=== PATIENT | male | born 1935 | race Caucasian/White ===

== ENCOUNTER 2017-04-01 01:53 | Emergency (ER) | payer MEDICARE ==
--- NOTE | 2017-04-01 02:20 | ED Physician Documentation ---
History of Present Illness - Stated complaint Stated Complaint: NECK PX - Chief complaint Chief Complaint: General - History obtained from History obtained from: Patient - History of Present Illness Timing: Enter time (15:00), Yesterday Pain level now: 5 Improved by: rest Worsened by: movement (turning head to right) - Additonal information Additional information: c/o atraumatic right-sided posterior neck pain since 3 PM (approximately 12 hours [employer] PROC[employer]). no h/o same. tylenol without relief. distinctly worse with rotation of head to right. difficulty sleeping or even lying down tonight due to the pain. Review of Systems Constitutional: denies: Fever Cardiac: reports: Reviewed and negative Respiratory: reports: Reviewed and negative GI: reports: Reviewed and negative Skin: denies: Rash Musculoskeletal: reports: Neck pain. denies: Back pain Neurologic: denies: Focal weakness, Numbness, Headache PD PAST MEDICAL HISTORY - Past Medical History Past Medical History: Yes GI: GERD - Past Surgical History Past Surgical History: Yes General: Hiatal hernia repair - Present Medications Home Medications: Ambulatory Orders Medication Instructions Recorded Confirmed Cyclobenzaprine [Flexeril] 10 mg PO TID PRN #20 tablet 04/01/17 Esomeprazole Magnesium [Nexium] 1 tab PO DAILY 04/01/17 04/01/17 HYDROcod/ACETAM 5/325 [[place] 5/325] 1 - 2 ea PO Q6H PRN #15 tablet 04/01/17 - Allergies Allergies/Adverse Reactions: Allergies Allergy/AdvReac Type Severity Reaction Status Date / Time No Known Drug Allergies Allergy Verified 04/01/17 02:01 - Social History Does the pt smoke?: No Smoking Status: Never smoker Does the pt drink ETOH?: No Does the pt have substance abuse?: No - Immunizations Immunizations are current?: Yes - POLST Patient has POLST: No PD ED PE NORMAL - Vitals Vital signs reviewed: Yes - General General: Alert and oriented X 3, No acute distress, Well developed/nourished - HEENT HEENT: Moist mucous membranes, Pharynx benign - Neck Neck: Supple, no meningeal sign, No bony TTP, No adenopathy, Thyroid normal - Cardiac Cardiac: RRR, No murmur, No rub - Respiratory Respiratory: No respiratory distress, Clear bilaterally - Back Back: No spinal TTP, Other (mild TTP right paracervical and along proximal trapezial ridge) - Derm Derm: Normal color, Warm and dry, No rash - Neuro Neuro: Alert and oriented X 3, back tender paper machine 2-12 intact, No motor deficit, No sensory deficit, Normal speech Results - Vitals Vitals: Vital Signs - 24 hr 04/01/17 04/01/17 04/01/17 01:55 02:45 03:00 Temperature 36.6 C Heart Rate 80 82 84 Respiratory 18 16 16 Rate Blood Pressure 207/97 H 173/111 H 182/93 H O2 Saturation 94 94 96 Oxygen O2 Source Room air PD MEDICAL DECISION MAKING - ED course Complexity details: considered differential, d/w patient Departure - Departure Disposition: 01 Home, Self Care Clinical Impression: Neck pain Condition: Good Instructions: ED Hypertension Poss, ED Neck Pain No Trauma Follow-Up: Celina Khan ARNP [Primary Care Provider] - Within 1 week Prescriptions: Cyclobenzaprine [Flexeril] 10 mg PO TID PRN #20 tablet PRN Reason: Spasms HYDROcod/ACETAM 5/325 [[place] 5/325] 1 - 2 ea PO Q6H PRN #15 tablet PRN Reason: Pain Discharge Date/Time: 04/01/17 03:07
[2017-04-01] MEDS ORDERED: HYDROcod/ACETAM 5/325 MG TABLET PO STA (02:56)
[2017-04-01] MEDS ORDERED: CYCLOBENZAPRINE 10 MG TABLET PO STA (02:56)
[2017-04-01 03:02] VITALS: BP 182/93
== END 2017-04-01 03:07 | disposition home or self-care (01) ==
LOC: ED 01:53
DX: M54.2 Cervicalgia (principal); K21.9 Gastro-esophageal reflux disease without esophagitis; M50.30 Other cervical disc degeneration, unspecified cervical region
CPT/HCPCS: 72050; 99283; A9270

== ENCOUNTER 2017-04-01 13:43 | Outpatient (CLI) | payer MEDICARE, OTHER ==
--- NOTE | 2017-04-02 13:16 | XRAY Report ---
DATE OF SERVICE: 04/01/2017 EXAM: COMPLETE CERVICAL SPINE: 04/01/2017 CLINICAL INDICATION: Muscle spasm. FINDINGS: AP, lateral, oblique, odontoid views of the cervical spine demonstrate moderate to severe degenerative disk and facet disease. There is bilateral osseous neural foraminal narrowing, worst on the left at C4-C5 and on the right at C3-C4. There is no evidence of acute fracture. No prevertebral soft tissue swelling is seen. IMPRESSION: MODERATE TO SEVERE DEGENERATIVE DISK AND FACET DISEASE, WITH BILATERAL OSSEOUS NEURAL FORAMINAL NARROWING. TD: 04/02/2017 10:41 BYRON
== END 2017-04-01 13:44 | disposition home or self-care (01) ==
LOC: DI 13:43
PROVIDERS: ATTEND Internal Medicine
DX: M54.2 Cervicalgia (principal); M50.30 Other cervical disc degeneration, unspecified cervical region
CPT/HCPCS: 72050

== ENCOUNTER 2017-11-09 14:52 | Outpatient (CLI) | payer MEDICARE, OTHER | END 2017-11-09 14:53 | disposition home or self-care (01) | LOC: LAB 14:52 | PROVIDERS: ATTEND Internal Medicine Gastroenterology | DX: R13.14 Dysphagia, pharyngoesophageal phase (principal) | CPT/HCPCS: 36415; 82565 ==

== ENCOUNTER 2017-12-01 12:28 | Outpatient (CLI) | payer MEDICARE, OTHER ==
[2017-12-01 12:46] LABS: BASOPHILS # (AUTO) 0.1 10^3/uL (0.0-0.1); BASOPHILS % (AUTO) 1.1 %; EOSINOPHILS # (AUTO) 0.2 10^3/uL (0.0-0.7); EOSINOPHILS % (AUTO) 3.9 %; HGB - HEMOGLOBIN 15.2 g/dL (14.0-18.0); LYMPHOCYTES % (AUTO) 15.9 %; MEAN CORPUSCULAR HGB CONC 35.4 g/dL (32.0-36.0); MEAN CORPUSCULAR VOLUME 84.9 fL (80.0-94.0); MONOCYTES # (AUTO) 0.5 10^3/uL (0.0-1.0); MONOCYTES % (AUTO) 8.5 %; NEUTROPHILS # (AUTO) 4.4 10^3/uL (1.5-6.6); NEUTROPHILS % (AUTO) 70.6 %; PLT - PLATELET COUNT 239 10^3/uL (130-450); RED BLOOD COUNT 5.07 10^6/uL (4.70-6.10); RED CELL DISTRIBUTION WIDTH 14.3 % (12.0-15.0); WHITE BLOOD COUNT 6.2 x10^3/uL (4.8-10.8)
[2017-12-01 12:57] LABS: INR 1.2 (0.8-1.2); PT - PROTHROMBIN TIME 13.6 secs (9.9-12.6)
[2017-12-01 12:58] LABS: ALBUMIN/GLOBULIN RATIO 1.3 (1.0-2.2); BILIRUBIN,TOTAL 1.4 mg/dL (0.2-1.0); TOTAL PROTEIN 7.2 g/dL (6.7-8.2)
== END 2017-12-01 12:29 | disposition home or self-care (01) ==
LOC: LAB 12:28
PROVIDERS: ATTEND Internal Medicine
DX: C15.9 Malignant neoplasm of esophagus, unspecified (principal)
CPT/HCPCS: 36415; 80053; 85025; 85610

== ENCOUNTER 2018-06-14 14:11 | Emergency (ER) | payer MEDICARE, OTHER ==
[2018-06-14] MEDS ORDERED: SODIUM CHLORIDE 0.9% 1,000 ML IV ONE ×2 (14:48→16:56)
[2018-06-14] MEDS ORDERED: HYDROmorphone 1 MG/ML CARPUJECT IVP STA (14:48)
[2018-06-14 14:50] LABS: BILIRUBIN,URINE NEGATIVE (NEGATIVE); GLUCOSE, URINE (UA) NEGATIVE (NEGATIVE); KETONES,URINE (UA) NEGATIVE (NEGATIVE); LEUKOCYTE ESTERASE, URINE NEGATIVE (NEGATIVE); NITRITE,URINE NEGATIVE (NEGATIVE); OCCULT BLOOD,URINE LARGE (NEGATIVE); PROTEIN,URINE TRACE mg/dL (NEGATIVE); UROBILINOGEN,URINE 1 (NORMAL) E.U./dL (NORMAL)
--- NOTE | 2018-06-14 14:51 | ED Physician Documentation ---
History of Present Illness - Stated complaint Stated Complaint: PAIN ALL OVER - Chief complaint Chief Complaint: Back Pain - History obtained from History obtained from: Patient, Family (daughter) - History of Present Illness Timing: Other (This is an 82-year-old gentleman who was diagnosed with esophageal cancer last year. It sounds like it was metastatic at diagnosis. He received chemotherapy and more recently Keytruda, last infusion about 2 weeks ago. About 10 days ago he developed body wide pain. Especially in the neck back shoulders and legs and really only bad if he moves. He also notes shortness of breath with mild increase in chronic cough over that timeframe without pedal edema or calf pain per se.) Review of Systems Ten Systems: 10 systems reviewed and negative Constitutional: reports: Fatigue. denies: Fever, Chills Nose: denies: Rhinorrhea / runny nose, Congestion Cardiac: denies: Chest pain / pressure, Palpitations, Pedal edema, Calf pain Respiratory: reports: Dyspnea, Cough. denies: Hemoptysis, Wheezing GI: denies: Abdominal Pain PD PAST MEDICAL HISTORY - Past Medical History Respiratory: COPD GI: GERD Other Past Medical History: esophageal cancer - Past Surgical History Past Surgical History: Yes General: Hiatal hernia repair - Present Medications Home Medications: Ambulatory Orders Medication Instructions Recorded Confirmed Cyclobenzaprine [Flexeril] 10 mg PO TID PRN #20 tablet 04/01/17 Esomeprazole Magnesium [Nexium] 1 tab PO DAILY 04/01/17 04/01/17 RX: HYDROcod/ACETAM 5/325 [[place] 1 - 2 ea PO Q6H PRN #15 tablet 04/01/17 5/325] - Allergies Allergies/Adverse Reactions: Allergies Allergy/AdvReac Type Severity Reaction Status Date / Time No Known Drug Allergies Allergy Verified 06/14/18 14:39 - Social History Does the pt smoke?: No Smoking Status: Never smoker Does the pt drink ETOH?: No Does the pt have substance abuse?: No - Family History Family history: reports: Non contributory - Immunizations Immunizations are current?: Yes - POLST Patient has POLST: No PD ED PE NORMAL - Vitals Vital signs reviewed: Yes (Hypoxemic) - General General: Alert and oriented X 3, No acute distress - HEENT HEENT: PERRL, EOMI - Neck Neck: Supple, no meningeal sign, No bony TTP - Cardiac Cardiac: RRR, No murmur - Respiratory Respiratory: Other (He is a little labored with exertion, comfortable at rest. Lung sounds are diminished on the left.) - Abdomen Abdomen: Soft, Non tender - Back Back: No CVA TTP, No spinal TTP - Derm Derm: Normal color, Warm and dry - Extremities Extremities: No deformity, No tenderness to palpate (Palpated all of his major joints and ranged his hips and knees and find no specific place that hurts him.), No edema, No calf tenderness / cord - Neuro Neuro: Alert and oriented X 3, nib inspector 2-12 intact, Normal speech Eye Opening: Spontaneous Motor: Obeys Commands Verbal: Oriented GCS Score: 15 Results - Vitals Vitals: Vital Signs - 24 hr 06/14/18 06/14/18 06/14/18 14:18 14:35 14:36 Temperature 36.5 C Heart Rate 69 78 73 Respiratory 18 Rate Blood Pressure 169/79 H O2 Saturation 89 L 85 L 95 06/14/18 06/14/18 06/14/18 15:23 17:08 17:23 Temperature Heart Rate 66 72 79 Respiratory 16 20 23 Rate Blood Pressure 135/87 H 166/66 H O2 Saturation 95 96 06/14/18 19:03 Temperature 36.6 C Heart Rate 76 Respiratory 20 Rate Blood Pressure 168/83 H O2 Saturation 95 Oxygen O2 Source Nasal cannula Oxygen Flow Rate 2 - EKG (time done) 1501 Rate: Rate (enter#) (67) Rhythm: NSR [place]: Normal Intervals: Normal [place] QRS: Normal Ischemia: Q waves (inferior) Computer interpretation: Agree with computer - Labs Labs: Laboratory Tests 06/14/18 06/14/18 06/14/18 14:30 14:55 14:55 WBC 4.7 L RBC 4.33 L Hgb 13.9 L Hct 38.8 L MCV 89.7 MCH 32.1 H MCHC 35.8 RDW 14.7 Plt Count 159 MPV 6.3 L Neut # (Auto) 3.9 Lymph # (Auto) 0.2 L [place] # (Auto) 0.4 Eos # (Auto) 0.1 Baso # (Auto) 0.0 Absolute Nucleated RBC 0.00 Nucleated RBC % 0.1 PT 14.5 H INR 1.3 H Sodium Potassium Chloride Carbon Dioxide Anion Gap BUN Creatinine Estimated GFR (MDRD) Glucose Lactic Acid Calcium Total Bilirubin AST ALT Alkaline Phosphatase Total Creatine Kinase CK-MB (CK-2) Troponin I Total Protein Albumin Globulin Albumin/Globulin Ratio Lipase Urine Color DARK YELLOW Urine Clarity CLEAR Urine pH 6.0 Ur Specific [place] <=1.005 Urine Protein TRACE Urine Glucose (UA) NEGATIVE Urine Ketones NEGATIVE Urine Occult Blood LARGE H Urine Nitrite NEGATIVE Urine Bilirubin NEGATIVE Urine Urobilinogen 1 (NORMAL) Ur Leukocyte Esterase NEGATIVE Urine RBC None Seen Urine WBC 0-3 Ur Squamous Epith Cells RARE Squamous Urine Bacteria None Seen Ur Microscopic Review INDICATED Urine Culture Comments NOT INDICATED 06/14/18 06/14/18 06/14/18 14:55 14:55 14:55 WBC RBC Hgb Hct MCV MCH MCHC RDW Plt Count MPV Neut # (Auto) Lymph # (Auto) [place] # (Auto) Eos # (Auto) Baso # (Auto) Absolute Nucleated RBC Nucleated RBC % PT INR Sodium 133 L Potassium 4.3 Chloride 96 L Carbon Dioxide 26 Anion Gap 11.0 BUN 14 Creatinine 0.8 Estimated GFR (MDRD) 93 Glucose 96 Lactic Acid 1.4 Calcium 8.5 Total Bilirubin 1.3 H AST 524 H ALT 314 H Alkaline Phosphatase 154 H Total Creatine Kinase 8597 H* CK-MB (CK-2) 164.7 H Troponin I 1.22 H* Total Protein 6.7 Albumin 3.6 Globulin 3.1 Albumin/Globulin Ratio 1.2 Lipase 28 Urine Color Urine Clarity Urine pH Ur Specific [place] Urine Protein Urine Glucose (UA) Urine Ketones Urine Occult Blood Urine Nitrite Urine Bilirubin Urine Urobilinogen Ur Leukocyte Esterase Urine RBC Urine WBC Ur Squamous Epith Cells Urine Bacteria Ur Microscopic Review Urine Culture Comments - Rads (name of study) CT Chest Angio Radiology: EMP read contemporaneously (No PE but he has severe underlying emphysema with pulmonary hypertension.) PD MEDICAL DECISION MAKING - ED course ED course: This is an 82-year-old gentleman with esophageal cancer undergoing treatment who presents with diffuse body pain that seems musculoskeletal and hypoxemia. His EKG is without significant ST changes. He is found to have evidence of rhabdomyolysis, non-STEMI, and severe COPD. I suspect the non-STEMI is a type II process from underlying COPD. He will need to be transferred for further evaluation and treatment and consultations with oncology and cardiology. He was administered aspirin, heparin, DuoNeb, Solu-Medrol, Rocephin and Zithromax after blood cultures. He was accepted by Dr Melgoza at [facility], but she requested that we try to admit here as she felt it would all be medical management. I spoke with Dr Finch here who felt he was not approproate for admit here without cardiuology c/s. - Critical Care Time(min): 40 Time Includes: Direct patient care, Review records, Reassess patient, Document care, Coordinate care, Medical consult, Family consult for tx dec Data interpretation: Labs, Pulse ox Procedures included in critical care time: Peripheral IV Procedures excluded from critical care time: EKG Departure - Departure Disposition: 02 Transfer Acute Care Hosp Clinical Impression: NSTEMI (non-ST elevated myocardial infarction), Hypoxemia COPD (chronic obstructive pulmonary disease) Qualifiers: COPD type: emphysema Emphysema type: panlobular Qualified Code(s): J43.1 - Panlobular emphysema Esophageal cancer Qualifiers: Malignant neoplasm of esophagus location: unspecified location Qualified Code(s): C15.9 - Malignant neoplasm of esophagus, unspecified Rhabdomyolysis Qualifiers: Rhabdomyolysis type: non-traumatic Qualified Code(s): M62.82 - Rhabdomyolysis Condition: Critical Discharge Date/Time: 06/14/18 19:17
[2018-06-14 14:54] LABS: CLARITY,URINE CLEAR (CLEAR)
[2018-06-14] MEDS ORDERED: IOVERSOL 320 100 ML VIAL IVP ONE ×2 (15:04→18:55)
[2018-06-14 15:11] LABS: BASOPHILS % (AUTO) 0.8 %; EOSINOPHILS # (AUTO) 0.1 10^3/uL (0.0-0.7); EOSINOPHILS % (AUTO) 1.8 %; HGB - HEMOGLOBIN 13.9 g/dL (14.0-18.0); LYMPHOCYTES # (AUTO) 0.2 10^3/uL (1.5-3.5); LYMPHOCYTES % (AUTO) 5.1 %; MEAN CORPUSCULAR HEMOGLOBIN 32.1 pg (27.0-31.0); MEAN CORPUSCULAR HGB CONC 35.8 g/dL (32.0-36.0); MEAN CORPUSCULAR VOLUME 89.7 fL (80.0-94.0); MEAN PLATELET VOLUME 6.3 fL (7.4-11.4); MONOCYTES # (AUTO) 0.4 10^3/uL (0.0-1.0); MONOCYTES % (AUTO) 8.5 %; NEUTROPHILS # (AUTO) 3.9 10^3/uL (1.5-6.6); NEUTROPHILS % (AUTO) 83.8 %; PLT - PLATELET COUNT 159 10^3/uL (130-450); RED BLOOD COUNT 4.33 10^6/uL (4.70-6.10); RED CELL DISTRIBUTION WIDTH 14.7 % (12.0-15.0); WHITE BLOOD COUNT 4.7 x10^3/uL (4.8-10.8)
[2018-06-14 15:11] LABS: BACTERIA,URINE None Seen /HPF (None Seen); RBC,URINE None Seen /HPF (0-5); SQUAMOUS EPITHELIAL CELL,UR RARE Squamous (<= Few)
[2018-06-14 15:21] LABS: INR 1.3 (0.8-1.2); PT - PROTHROMBIN TIME 14.5 secs (9.9-12.6)
[2018-06-14 15:25] LABS: CREATINE KINASE MB 164.7 ng/mL (0.6-6.3)
[2018-06-14 15:40] LABS: ALBUMIN 3.6 g/dL (3.2-5.5); ALBUMIN/GLOBULIN RATIO 1.2 (1.0-2.2); BILIRUBIN,TOTAL 1.3 mg/dL (0.2-1.0); CALCIUM 8.5 mg/dL (8.5-10.3); CREATININE 0.8 mg/dL (0.6-1.2); TOTAL PROTEIN 6.7 g/dL (6.7-8.2)
[2018-06-14 16:05] LABS: TROPONIN I 1.22 ng/mL (<0.49)
--- NOTE | 2018-06-14 16:25 | CT Report ---
Reason: PE protocol, pain and hypoxemia Procedure Date: 06/14/2018 Accession Number: [id number] / [id number] Procedure: CT - ANGIO CHEST W/WO CPT Code: FULL RESULT: EXAM: CT ANGIOGRAM CHEST WITH AND WITHOUT. EXAM DATE: 06/14/2018 04:10 PM. CLINICAL HISTORY: Pulmonary embolism protocol, pain and hypoxemia. COMPARISON: None. TECHNIQUE: Routine helical imaging was performed through the chest in the pulmonary arterial phase. IV Contrast: OPTI-320 80 mL. Reconstructions: Coronal 3-D MIP reconstructions.Sagittal and coronal. In accordance with CT protocol optimization, one or more of the following dose reduction techniques were utilized for this exam: automated exposure control, adjustment of mA and/or KV based on patient size, or use of iterative reconstructive technique. FINDINGS: Pulmonary Arteries: Diagnostic quality: Adequate through the segmental arteries. No evidence for acute or chronic pulmonary emboli. RV/LV is within normal limits. There is no interventricular septal bowing. There is no reflux of contrast material in the IVC. Lungs/Pleura: Severe underlying emphysematous changes. Additionally, in both lung bases there is scarring and interstitial thickening. Mediastinum: There is enlargement of the left and right pulmonary arteries, suggestive of pulmonary hypertension. No mediastinal or hilar lymphadenopathy. Atherosclerotic coronary arteries. Thoracic Aorta: Atherosclerotic. Upper Abdomen: Right renal cyst. Other: None. IMPRESSION: Severe underlying emphysema with pulmonary arteries suggestive of pulmonary hypertension. No pulmonary embolism. CRITICAL RESULT: The findings were discussed with Dr. Ni on 06/14/2018 at 4:20 PM. RADIA
[2018-06-14] MEDS ORDERED: IPRATROPIUM/ALBUTEROL 3 ML NEB INH STA (16:47)
[2018-06-14] MEDS ORDERED: AZITHROMYCIN INJ 500 MG in SODIUM CHLORIDE 0.9% 250 ML IV STA (16:47)
[2018-06-14] MEDS ORDERED: cefTRIAXone 1 GM in SODIUM CHLORIDE 0.9% MINIBAG 100 ML IV STA (16:47)
[2018-06-14] MEDS ORDERED: ASPIRIN CHEW 81 MG TABLET PO STA (16:47)
[2018-06-14] MEDS ORDERED: methylPREDNISolone SUCCINATE 125 MG/2 ML VIAL IVP STA (16:47)
[2018-06-14] MEDS ORDERED: HEPARIN 25000UNITS/500ML (D5W) 25,000 UNIT/500 ML BAG IV STA (16:47)
[2018-06-14 19:06] VITALS: BP 168/83
== END 2018-06-14 19:17 | disposition short-term general hospital (02) ==
LOC: ED 14:11
DX: I21.4 Non-ST elevation (NSTEMI) myocardial infarction (principal); J43.1 Panlobular emphysema; M62.82 Rhabdomyolysis; R94.31 Abnormal electrocardiogram [ECG] [EKG]; C15.9 Malignant neoplasm of esophagus, unspecified; Z92.21 Personal history of antineoplastic chemotherapy
CPT/HCPCS: 36415; 36556; 71275; 80053; 81001; 82550; 82553; 83605; 83690; 84484; 85025; 85610; 87040; 93005; 94640; 96361; 96365; 96375; 96376; 99285; 99291; A9270; J1170; Q9967; 81003; 87086

== ENCOUNTER 2018-06-14 19:15 | Outpatient (CLI) | payer MEDICARE, OTHER | END 2018-06-14 19:16 | disposition short-term general hospital (02) | LOC: EMS 19:15 | PROVIDERS: ATTEND Surgery | DX: I21.4 Non-ST elevation (NSTEMI) myocardial infarction (principal); M62.82 Rhabdomyolysis | CPT/HCPCS: A0425; A0426 ==

== ENCOUNTER 2018-08-03 19:36 | Inpatient (IN) | payer MEDICARE, OTHER ==
[2018-08-03 20:10] LABS: BASOPHILS % (AUTO) 0.7 %; EOSINOPHILS % (AUTO) 0.2 %; HGB - HEMOGLOBIN 12.2 g/dL (14.0-18.0); LYMPHOCYTES # (AUTO) 0.2 10^3/uL (1.5-3.5); LYMPHOCYTES % (AUTO) 2.4 %; MEAN CORPUSCULAR HEMOGLOBIN 31.3 pg (27.0-31.0); MEAN CORPUSCULAR HGB CONC 35.1 g/dL (32.0-36.0); MEAN CORPUSCULAR VOLUME 89.4 fL (80.0-94.0); MEAN PLATELET VOLUME 5.9 fL (7.4-11.4); MONOCYTES # (AUTO) 0.5 10^3/uL (0.0-1.0); MONOCYTES % (AUTO) 8.2 %; NEUTROPHILS # (AUTO) 5.7 10^3/uL (1.5-6.6); NEUTROPHILS % (AUTO) 88.5 %; PLT - PLATELET COUNT 165 10^3/uL (130-450); RED BLOOD COUNT 3.89 10^6/uL (4.70-6.10); RED CELL DISTRIBUTION WIDTH 16.6 % (12.0-15.0); WHITE BLOOD COUNT 6.4 x10^3/uL (4.8-10.8)
[2018-08-03 20:22] LABS: ALBUMIN 3.5 g/dL (3.2-5.5); ALBUMIN/GLOBULIN RATIO 1.1 (1.0-2.2); BILIRUBIN,TOTAL 2.6 mg/dL (0.2-1.0); CALCIUM 8.4 mg/dL (8.5-10.3); CREATININE 0.7 mg/dL (0.6-1.2); TOTAL PROTEIN 6.6 g/dL (6.7-8.2)
--- NOTE | 2018-08-03 20:27 | ED Physician Documentation ---
PD HPI ALTERED MENTAL STATUS - Stated complaint Stated Complaint: CONFUSION/CHILLS - Chief complaint Chief Complaint: Resp - History obtained from History obtained from: Patient, Family - History of Present Illness Timing - onset: Yesterday Timing - details: Gradual onset Quality / character: Confused, Disoriented Associated symptoms: Dyspnea, Cough. No: Fever Contributing factors: Cancer Basline status: Alert and oriented X 3, Ambulatory Recently seen: Other (evaluated outpatient at [facility] by radiologist for planning for radiation tx) - Additional information Additional information: patient c/o chest and back pain x few days. However, family (in ED at bedside) say this is subacute (few weeks) and is not why he is here: they report patient has been confused, "disoriented" since yesterday, worse today. They have also observed episodic shaking chills during the day today and this evening, as well as increasing cough and shortness of breath x few days. He was started on 2 liters [place] oxygen at home approximately 1 month ago but he has recently been increasing this to 4 and 5 liters oxygen due to increasing dyspnea. He recently completed a PO steroid taper Review of Systems Constitutional: reports: Chills. denies: Fever, Sweats Throat: reports: Reviewed and negative Cardiac: reports: Reviewed and negative Respiratory: reports: Dyspnea, Cough GI: reports: Reviewed and negative : denies: Dysuria, Frequency Skin: reports: Reviewed and negative Musculoskeletal: reports: Back pain (chronic) Neurologic: reports: Confused, Altered mental status. denies: Focal weakness, Numbness, Headache PD PAST MEDICAL HISTORY - Past Medical History Past Medical History: Yes Respiratory: COPD GI: GERD Other Past Medical History: esophogeal cancer - Past Surgical History Past Surgical History: Yes General: Hiatal hernia repair - Present Medications Home Medications: Ambulatory Orders Medication Instructions Recorded Confirmed Aspirin 81 mg PO DAILY 08/03/18 08/03/18 Esomeprazole Magnesium 40 mg PO DAILY 08/03/18 08/03/18 Ibuprofen 600 mg PO Q6H 08/03/18 08/03/18 Metoprolol Succinate 25 mg PO DAILY 08/03/18 08/03/18 Morphine Ir [Ms Ir] 7.5 mg PO Q6H 08/03/18 08/03/18 Prochlorperazine Maleate 10 mg PO Q6H PRN 08/03/18 08/03/18 [Compazine] Tiotropium [place] [Spiriva] 18 mcg IH DAILY 08/03/18 amLODIPine [Norvasc] 5 mg PO DAILY 08/03/18 08/03/18 - Allergies Allergies/Adverse Reactions: Allergies Allergy/AdvReac Type Severity Reaction Status Date / Time pembrolizumab [From Keytruda] Allergy Anaphylaxis Verified 08/03/18 19:46 - Social History Does the pt smoke?: No Smoking Status: Former smoker Does the pt drink ETOH?: No Does the pt have substance abuse?: No - Immunizations Immunizations are current?: Yes - POLST Patient has POLST: No PD ED PE NORMAL - Vitals Vital signs reviewed: Yes - General General: Alert and oriented X 3, No acute distress, Well developed/nourished - HEENT HEENT: PERRL, EOMI, Moist mucous membranes - Neck Neck: Supple, no meningeal sign - Cardiac Cardiac: RRR, No murmur, Other (occasional extra beats) - Respiratory Respiratory: No respiratory distress, Clear bilaterally - Abdomen Abdomen: Soft, Non tender - Derm Derm: Normal color, Warm and dry - Extremities Extremities: No edema - Neuro Neuro: Alert and oriented X 3, vice president of finance 2-12 intact, No motor deficit, No sensory deficit, Normal speech Eye Opening: Spontaneous Motor: Obeys Commands Verbal: Oriented GCS Score: 15 Results - Vitals Vitals: Vital Signs - 24 hr 08/03/18 08/03/18 08/03/18 19:36 20:03 20:35 Temperature 36.7 C Heart Rate 92 90 Respiratory 24 22 25 H Rate Blood Pressure 171/81 H O2 Saturation 88 L 91 L 92 08/03/18 08/03/18 08/03/18 21:02 21:30 21:59 Temperature Heart Rate 88 84 Respiratory 16 16 Rate Blood Pressure 171/88 H 160/77 H O2 Saturation 91 L 93 88 L 08/03/18 22:16 Temperature Heart Rate Respiratory Rate Blood Pressure O2 Saturation 92 Oxygen O2 Source Nasal cannula Oxygen Flow Rate 4 - EKG (time done) No standard instances Rate: Wilfred (93) Rhythm: NSR [place]: Normal Intervals: Normal [place] QRS: Normal Ischemia: Non specific changes (V2-V5) Compare to prior EKG: Other (similar ST findings (V leads) on previous 06/14/18) - Labs Labs: Laboratory Tests 08/03/18 08/03/18 08/03/18 20:03 20:03 20:03 WBC 6.4 RBC 3.89 L Hgb 12.2 L Hct 34.8 L MCV 89.4 MCH 31.3 H MCHC 35.1 RDW 16.6 H Plt Count 165 MPV 5.9 L Neut # (Auto) 5.7 Lymph # (Auto) 0.2 L [place] # (Auto) 0.5 Eos # (Auto) 0.0 Baso # (Auto) 0.0 Absolute Nucleated RBC 0.01 Nucleated RBC % 0.2 Sodium 132 L Potassium 3.2 L Chloride 97 L Carbon Dioxide 25 Anion Gap 10.0 BUN 16 Creatinine 0.7 Estimated GFR (MDRD) 108 Glucose 117 H Lactic Acid Calcium 8.4 L Total Bilirubin 2.6 H AST 27 ALT 32 Alkaline Phosphatase 158 H Troponin I < 0.04 B-Natriuretic Peptide Total Protein 6.6 L Albumin 3.5 Globulin 3.1 Albumin/Globulin Ratio 1.1 Lipase 21 L Urine Color Urine Clarity Urine pH Ur Specific [place] Urine Protein Urine Glucose (UA) Urine Ketones Urine Occult Blood Urine Nitrite Urine Bilirubin Urine Urobilinogen Ur Leukocyte Esterase Ur Microscopic Review Urine Culture Comments 08/03/18 08/03/18 08/03/18 20:03 20:03 21:44 WBC RBC Hgb Hct MCV MCH MCHC RDW Plt Count MPV Neut # (Auto) Lymph # (Auto) [place] # (Auto) Eos # (Auto) Baso # (Auto) Absolute Nucleated RBC Nucleated RBC % Sodium Potassium Chloride Carbon Dioxide Anion Gap BUN Creatinine Estimated GFR (MDRD) Glucose Lactic Acid 1.4 Calcium Total Bilirubin AST ALT Alkaline Phosphatase Troponin I B-Natriuretic Peptide 147 H Total Protein Albumin Globulin Albumin/Globulin Ratio Lipase Urine Color YELLOW Urine Clarity CLEAR Urine pH 6.0 Ur Specific [place] 1.010 Urine Protein TRACE Urine Glucose (UA) NEGATIVE Urine Ketones >=80 H Urine Occult Blood TRACE-INTA Urine Nitrite NEGATIVE Urine Bilirubin NEGATIVE Urine Urobilinogen 4 H Ur Leukocyte Esterase NEGATIVE Ur Microscopic Review NOT INDICATED Urine Culture Comments NOT INDICATED - Rads (name of study) chest xray Radiology: Prelim report reviewed, See rad report CT head Radiology: Prelim report reviewed, See rad report PD MEDICAL DECISION MAKING - ED course Complexity details: reviewed results, re-evaluated patient, considered differential, d/w patient, d/w family Departure - Departure Disposition: 66 [facility] DC/Xfer Clinical Impression: Hypoxemia, COPD (chronic obstructive pulmonary disease) Condition: Stable Discharge Date/Time: 08/03/18 23:39
--- NOTE | 2018-08-03 20:48 | XRAY Report ---
Reason: hypoxic chills Procedure Date: 08/03/2018 Accession Number: [id number] / [id number] Procedure: XR - Chest 1 View X-Ray CPT Code: 16521 FULL RESULT: EXAM: CHEST RADIOGRAPHY EXAM DATE: 08/03/2018 08:36 PM. CLINICAL HISTORY: Hypoxic chills. COMPARISON: CHEST 2 VIEW PA/LAT 02/15/2017 2:46 PM. TECHNIQUE: 1 view. FINDINGS: Lungs/Pleura: There are increased ill-defined airspace opacities in the right mid lung and left lung base. There is vague increased density in the left upper lobe. Lung volumes are symmetric. There is no pneumothorax. Mediastinum: There is a right-sided Port-A-Cath with tip at the cavoatrial junction. The heart size is normal. There is mild atherosclerotic aortic calcification. Other: None. IMPRESSION: 1. New bilateral airspace disease suspicious for bilateral bronchopneumonia or less likely pulmonary edema. RADIA
--- NOTE | 2018-08-03 20:54 | CT Report ---
Reason: altered mental status Procedure Date: 08/03/2018 Accession Number: [id number] / [id number] Procedure: CT - HEAD WO CPT Code: FULL RESULT: EXAM: CT HEAD EXAM DATE: 08/03/2018 08:44 PM. CLINICAL HISTORY: Altered mental status. COMPARISON: None. TECHNIQUE: Multiaxial CT images were obtained from the foramen magnum to the vertex. Reformats: Sagittal and coronal. IV contrast: None. In accordance with CT protocol optimization, one or more of the following dose reduction techniques were utilized for this exam: automated exposure control, adjustment of mA and/or KV based on patient size, or use of iterative reconstructive technique. FINDINGS: Parenchyma: No intraparenchymal hemorrhage. No evidence of mass, midline shift, or CT findings of acute infarction. Wheeler-white differentiation is distinct. Diffuse chronic microangiopathic white matter changes. Extraaxial Spaces: Normal for age. No subdural or epidural collections. Ventricles: The ventricles and cortical sulci are enlarged, consistent with age-related tissue loss. Sinuses and orbits: Imaged paranasal sinuses, orbits, and mastoids show no significant abnormality. Bones: Unremarkable. Other: None. IMPRESSION: Generalized age-related cortical atrophic changes without evidence of acute intracranial abnormality. RADIA
[2018-08-03] MEDS ORDERED: MORPHINE 2 MG/ML SYRINGE IVP STA ×2 (21:47→22:49)
[2018-08-03 21:53] LABS: GLUCOSE, URINE (UA) NEGATIVE (NEGATIVE); KETONES,URINE (UA) >=80 mg/dL (NEGATIVE); LEUKOCYTE ESTERASE, URINE NEGATIVE (NEGATIVE); NITRITE,URINE NEGATIVE (NEGATIVE); OCCULT BLOOD,URINE TRACE-INTA (NEGATIVE); PROTEIN,URINE TRACE mg/dL (NEGATIVE); UROBILINOGEN,URINE 4 E.U./dL (NORMAL)
[2018-08-03 21:58] LABS: BILIRUBIN,URINE NEGATIVE (NEGATIVE); CLARITY,URINE CLEAR (CLEAR); ICTOTEST,URINE NEGATIVE
[2018-08-03] MEDS ORDERED: DEXAMETHASONE 10 MG/ML VIAL IVP STA (22:19)
[2018-08-03] MEDS ORDERED: cefTRIAXone 1 GM in SODIUM CHLORIDE 0.9% MINIBAG 100 ML IV STA (22:19)
[2018-08-03] MEDS ORDERED: AZITHROMYCIN INJ 500 MG in SODIUM CHLORIDE 0.9% 250 ML IV STA (22:20)
[2018-08-03] MEDS ORDERED: ACETAMINOPHEN 325 MG TABLET PO PRN (22:21)
--- NOTE | 2018-08-03 23:53 | HISTORY & PHYSICAL EXAMINATION ---
Chief Complaint - Chief Complaint Chief Complaint: confusion, dyspnea, chills History of Present Illness - Admitted From Admitted From:: [facility] ED - History Obtained From Records Reviewed: yes History obtained from: patient's daughter Exam Limitations: intermittent confusion - History of Present Illness HPI Comment/Other: Patient seen on 08/03/18 at 22:15pm. Patient is an 83 y/o male who was brought to the ED by his daughter and son-in-law for confusion, chills, rigors and increasing dyspnea. She reports that he sounded confused on a phone conversation the previous night. 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 He had a radiology appointment for brain mapping prior to radiotherapy today. He slept all the way to the appointment and all the way back. Around 5pm he was visited by a sibling who lives in the same apartment complex. He seemed disoriented then. He could not remember if he took his medications that morning. He has also been having a productive brownish cough. He was recently put on oxygen to use during periods of exertion. His oxygenation has been reported to drop into the 70's when ambulating. His O2Sat today ranged between 89-91 % on 4- 5L N/C. He experiences pain between his shoulder blades as a result of metastasis of cancer. He describes the pain as wrapping around. He was diagnosed with esophageal cancer 1 year ago. He had 3 months of chemotherapy and the was started on keytruda. He received 2 doses of keytruda and had a severe reaction to it. As a result it was stopped, and he was placed on dexamethasone. He had a PETS scan 2 weeks ago which showed the metastasis to his upper spine and 2 spots in his abdomen. The previously detectable esophageal lymph nodes were no longer detectable. Work up in the ED included a CXR which showed pneumonia. As a result he is being admitted for further management. History - Past Medical History Cardiovascular: reports: Hypertension Respiratory: reports: COPD GI: reports: GERD MRSA Hx?: No Other Past Medical History: esophogeal cancer - Past Surgical History General: reports: Hiatal hernia repair - Family & Social History Family History: Mother: CAD (Had a CABG) Living arrangement: At home Living Situation: Alone (Sibing lives in the same building) Social History Notes: Quit smoking 27 years ago. Denies alcohol or illicit drug use - Substance History Use: Uses substance without health or social issues: NONE - POLST Patient has POLST: No POLST Status: Full Code Meds/Allgy - Home Medications Home Medications: Ambulatory Orders Medication Instructions Recorded Confirmed Aspirin 81 mg PO DAILY 08/03/18 08/03/18 Esomeprazole Magnesium 40 mg PO DAILY 08/03/18 08/03/18 Ibuprofen 600 mg PO Q6H 08/03/18 08/03/18 Metoprolol Succinate 25 mg PO DAILY 08/03/18 08/03/18 Morphine Ir [Ms Ir] 7.5 mg PO Q6H 08/03/18 08/03/18 Prochlorperazine Maleate 10 mg PO Q6H PRN 08/03/18 08/03/18 [Compazine] Tiotropium [place] [Spiriva] 18 mcg IH DAILY 08/03/18 amLODIPine [Norvasc] 5 mg PO DAILY 08/03/18 08/03/18 - Allergies Allergies/Adverse Reactions: Allergies Allergy/AdvReac Type Severity Reaction Status Date / Time [facility]rolizumab [facility] Allergy Anaphylaxis Verified 08/03/18 19:46 Review of Systems - Constitutional Constitutional: reports: Fatigue, Fever, Chills, Weakness - Eyes Eyes: denies: Blurred vision, Vision loss, Dipolpia - Ears, Nose & Throat Ears, Nose & Throat: denies: Vertigo, Nasal pain, Nasal discharge - Cardiovascular Cariovascular: reports: Exertional dyspnea. denies: Chest pain, Edema, Syncope - Respiratory Respiratory: reports: Cough, Sputum production, Wheezing, SOB at rest, SOB with exertion - Gastrointestinal Gastrointestinal: denies: Abdominal pain, Abdominal distention, Diarrhea, Nausea, Vomiting - Genitourinary Genitourinary: denies: Dysuria, Frequency, Urgency, Hematuria - Musculoskeletal Musculoskeletal: reports: Back pain - Integumentary Integumentary: denies: Rash, Pruritis, Lesions, Dryness - Neurological Neurological: reports: Other (confused). denies: General weakness, Focal weakness, Headache, Dizziness - Psychiatric Psychiatric: denies: Depression, Anxiety - Endocrine Endocrine: denies: Polyuria, Polydypsia - Hematologic/Lymphatic Hematologic/Lymphatic: denies: Anemia, Bruising Prior Level of Functionality: Lives in his apartment alone Brother lives in the same apartment building. Daughter checks on him daily. Independent of activities of daily living Exam - Vital Signs Vital Signs: Vital Signs x48h Temp Pulse Resp BP Pulse Ox 08/03/18 23:08 83 16 149/80 H 90 L 08/03/18 22:16 92 08/03/18 21:59 84 16 160/77 H 88 L 08/03/18 21:30 93 08/03/18 21:02 88 16 171/88 H 91 L 08/03/18 20:35 25 H 92 08/03/18 20:03 90 22 91 L 08/03/18 19:36 36.7 C 92 24 171/81 H 88 L - Physical Exam General Appearance: positive: Moderate distress, Other (Sleepy. Easily doses off but readily arousable) Eyes Bilateral: positive: Normal inspection, PERRL, EOMI ENT: negative: No signs of dehydration Neck: positive: No JVD, Trachea midline Respiratory: positive: Chest non-tender, Rales. negative: No respiratory distress Cardiovascular: positive: Regular rate & rhythm, No murmur, No gallop Abdomen: positive: Non-tender, Nml bowel sounds, No distention. negative: Guarding, Rebound Back: positive: Nml inspection Skin: positive: Color nml, No rash, Warm, Dry. negative: Cyanosis, Diaphoresis, Pallor, Skin rash Extremities: positive: Non-tender, Full ROM, Nml appearance, Pedal edema (+1) Neurologic/Psychiatric: positive: Other (intermittently confused) Sepsis Event Note (H) - Evaluation Possible source of Sepsis: positive: Pulmonary - Sepsis Criteria Sepsis Criteria: Suspected or Documented, Respiratory: Increasing oxygen requirements Conclusion/Plan - Problem List (1) Pneumonia Conclusion/Plan: Patient started on rocephin and azithromycin Will continue. Blood culture pending Qualifiers: Pneumonia type: due to unspecified organism Laterality: bilateral Lung location: unspecified part of lung Qualified Code(s): J18.9 - Pneumonia, unspecified organism (2) Hypoxemia Conclusion/Plan: Possible 2/2 pneumonia On 5L O2 N/C (3) COPD (chronic obstructive pulmonary disease) Conclusion/Plan: Not in exacerbation. On 5L O2 N/C O2Sat between 89-93% Will order breathing treatments Qualifiers: COPD type: COPD with acute lower respiratory infection Qualified Code(s): J44.0 - Chronic obstructive pulmonary disease with acute lower respiratory infection (4) Encephalopathy Conclusion/Plan: ? 2/[address] head negative for metastatic disease Treating pneumonia with rocephin and azithromycin On 5L N/C Oxygen (5) Esophageal cancer Conclusion/Plan: With metastasis to spine Pain management with Morphine Patient preparing to begin radiotherapy Qualifiers: Malignant neoplasm of esophagus location: unspecified location Qualified Code(s): C15.9 - Malignant neoplasm of esophagus, unspecified (6) Hypertension Conclusion/Plan: On amlodipine and metoprolol Resume once verified (7) GERD (gastroesophageal reflux disease) Conclusion/Plan: Protonix ordered - Lab Results Fish Bones: 08/03/18 20:03 08/03/18 20:03 - Diagnostic Imaging Results Diagnostic Imaging Results: positive: Final report reviewed Core Measures - Anticipated LOS I expect patient to be DC'd or transferred within 96 hours.: Yes - DVT/VTE - Prophylaxis VTE/DVT Device ordered at admit?: Yes VTE/DVT Prophylaxis med ordered at admit?: Yes
[2018-08-04] MEDS: SODIUM CHLORIDE FLUSH 0.9% 10 ML SYRINGE IVP SCH ×3 (00:16→17:54)
[2018-08-04] MEDS ORDERED: MORPHINE ER 15 MG TABLET ONE (01:14)
[2018-08-04] MEDS: IBUPROFEN 600 MG TABLET PO SCH ×4 (01:48→19:19)
[2018-08-04] MEDS: MORPHINE IR 15 MG TABLET PO SCH ×4 (01:48→19:19)
[2018-08-04 04:58] LABS: BASOPHILS % (AUTO) 0.2 %; HGB - HEMOGLOBIN 10.9 g/dL (14.0-18.0); LYMPHOCYTES # (AUTO) 0.1 10^3/uL (1.5-3.5); LYMPHOCYTES % (AUTO) 2.1 %; MEAN CORPUSCULAR HEMOGLOBIN 31.9 pg (27.0-31.0); MEAN CORPUSCULAR HGB CONC 35.9 g/dL (32.0-36.0); MEAN CORPUSCULAR VOLUME 88.8 fL (80.0-94.0); MEAN PLATELET VOLUME 6.1 fL (7.4-11.4); MONOCYTES # (AUTO) 0.2 10^3/uL (0.0-1.0); MONOCYTES % (AUTO) 3.2 %; NEUTROPHILS # (AUTO) 5.8 10^3/uL (1.5-6.6); NEUTROPHILS % (AUTO) 94.5 %; PLT - PLATELET COUNT 144 10^3/uL (130-450); RED BLOOD COUNT 3.42 10^6/uL (4.70-6.10); RED CELL DISTRIBUTION WIDTH 16.7 % (12.0-15.0); WHITE BLOOD COUNT 6.1 x10^3/uL (4.8-10.8)
[2018-08-04 05:08] LABS: CREATININE 0.6 mg/dL (0.6-1.2)
[2018-08-04] MEDS: PANTOPRAZOLE 40 MG TABLET PO SCH (07:18)
[2018-08-04] MEDS ORDERED: POTASSIUM CHLORIDE 20 MEQ TABLET PO ONE ×2 (08:19)
[2018-08-04] MEDS ORDERED: ALBUTEROL NEB 2.5 MG/3 ML INH PRN (08:34)
[2018-08-04 08:47] LABS: ABSOLUTE RETICS # AUTO 0.133 10^6/uL (0.020-0.110); MEAN RETIC VALUE 110.8; RED BLOOD COUNT 3.41 10^6/uL (4.70-6.10)
[2018-08-04] MEDS ORDERED: AZITHROMYCIN INJ 500 MG in SODIUM CHLORIDE 0.9% 250 ML IV SCH (09:00)
[2018-08-04 09:41] LABS: % IRON SATURATION 16 % (20-50); IRON 28 ug/dL (45-182); TOTAL IRON BINDING CAPACITY 178 ug/dL (250-450); TRANSFERRIN 127 mg/dL (180-329)
[2018-08-04] MEDS: ASPIRIN CHEW 81 MG TABLET PO SCH (09:49)
[2018-08-04] MEDS: amLODIPine 5 MG TABLET PO SCH (09:49)
[2018-08-04] MEDS: POLYETHYLENE GLYCOL 3350 17 GM PACKET PO SCH (09:50)
[2018-08-04] MEDS: METOPROLOL SUCCINATE 25 MG TABLET PO SCH (09:50)
[2018-08-04] MEDS: ENOXAPARIN 40 MG/0.4 ML SYRINGE SUBQ SCH (09:52)
[2018-08-04] MEDS: AZITHROMYCIN 250 MG TABLET PO SCH (11:30)
[2018-08-04] MEDS: IPRATROPIUM/ALBUTEROL 3 ML NEB INH PRN (16:51)
--- NOTE | 2018-08-04 17:29 | PROVIDER PROGRESS NOTE ---
Subjective - Prog Note Date Prog Note Date: 08/04/18 - Subjective Pt reports feeling: Improved Subjective: pt report he feel some improved, breath is better. he denies fever, chill, chest pain. Current Medications - Current Medications Current Medications: Active Medications Acetaminophen (Tylenol) 650 mg PO Q4HR PRN PRN Reason: Pain 1 to 4 Albuterol () 2.5 mg INH RTQ4H PRN PRN Reason: Wheezing Albuterol/Ipratropium (Duoneb) 3 ml INH Q4HR PRN PRN Reason: Wheezing Last Admin: 08/04/18 16:51 Dose: 3 ml Amlodipine Besylate (Norvasc) 5 mg PO DAILY [facility] Last Admin: 08/04/18 09:49 Dose: 5 mg Aspirin ([place] Aspirin) 81 mg PO DAILY [facility] Last Admin: 08/04/18 09:49 Dose: 81 mg Azithromycin (Zithromax) 250 mg PO DAILY [facility] Last Admin: 08/04/18 11:30 Dose: 250 mg Enoxaparin Sodium (Lovenox) 40 mg SUBQ DAILY [facility] Last Admin: 08/04/18 09:52 Dose: Not Given Ferrous Sulfate (Feosol) 325 mg PO BIDWM [facility] Ceftriaxone Sodium 1 gm/ (Sodium Chloride) 100 mls @ 200 mls/hr IV Q24H [facility] Ibuprofen (Motrin) 600 mg PO Q6H [facility] Last Admin: 08/04/18 13:08 Dose: 600 mg Metoprolol Succinate (Toprol Xl) 25 mg PO DAILY [facility] Last Admin: 08/04/18 09:50 Dose: 25 mg Morphine Sulfate (Ms Ir) 7.5 mg PO Q6H [facility] Last Admin: 08/04/18 13:08 Dose: 7.5 mg Multivitamins/Minerals (Theragran M) 1 tab PO DAILYWM [facility] Pantoprazole Sodium (Protonix) 40 mg PO QDAC [facility] Last Admin: 08/04/18 07:18 Dose: 40 mg Polyethylene Glycol (Miralax) 17 gm PO DAILY [facility] Last Admin: 08/04/18 09:50 Dose: Not Given Saccharomyces Boulardii (Florastor) 250 mg PO BIDWM [facility] Sodium Chloride (Normal Saline Flush 0.9%) 10 ml IVP PRN PRN PRN Reason: NEEDED PER PROVIDER ORDERS Sodium Chloride (Normal Saline Flush 0.9%) 10 ml IVP 0100,0900,1700 [facility] Last Admin: 08/04/18 16:24 Dose: Not Given Aspirin 81 mg PO DAILY 08/03/18 Ibuprofen 600 mg PO Q6H 08/03/18 Metoprolol Succinate 25 mg PO DAILY 08/03/18 Morphine Ir [Ms Ir] 7.5 mg PO Q6H 08/03/18 Prochlorperazine Maleate [Compazine] 10 mg PO Q6H PRN 08/03/18 amLODIPine [Norvasc] 5 mg PO DAILY 08/03/18 Esomeprazole Magnesium [Nexium] 40 mg PO QDAC 08/04/18 Tiotropium [place] [Spiriva Respimat] 2 puffs INH DAILY 08/04/18 Objective - Vital Signs/Intake & Output Reviewed Vital Signs: Yes Vital Signs: Vital Signs x48h Pulse Pulse Resp BP Pulse Ox 08/04/18 16:51 64 18 08/04/18 16:02 70 18 135/67 H 93 Intake & Output: Intake & Output 08/01/18 08/02/18 08/03/18 08/04/18 23:59 23:59 23:59 23:59 Intake Total 100 900 Balance 100 900 - Objective General Appearance: positive: No acute distress, Alert. negative: Lethargic Eyes Bilateral: positive: Normal inspection, PERRL, No lid inflammation, Conjunctivae nml ENT: positive: ENT inspection nml, Pharynx nml, No signs of dehydration. negative: Purulent nasal drainage, Pharyngeal erythema, Oral lesions Neck: positive: Nml inspection, Thyroid nml, No JVD, Trachea midline. negative: Thyromegaly, Lymphadenopathy (R), Lymphadenopathy (L), Stiff neck, Swelling/bruising, Tracheal deviation Respiratory: positive: Chest non-tender, No respiratory distress, Breath sounds nml. negative: Wheezes, Rales, Rhonchi Cardiovascular: positive: Regular rate & rhythm, No murmur, No gallop. negative: Irregularly irregular, Extrasystoles, Tachycardia, Bradycardia, JVD present, Systolic murmur, Diastolic murmur Peripheral Pulses: 2+ Radial (R), 2+ Radial (L), 2+ Dorsalis pedis (R), 2+ Dorsalis pedis (L) Abdomen: positive: Non-tender, No organomegaly, Nml bowel sounds, No distention. negative: Tenderness, Guarding, Rebound Back: positive: Nml inspection. negative: CVA tenderness (R), CVA tenderness (L) Skin: positive: Color nml, No rash, Warm, Dry. negative: Cyanosis, Diaphoresis, Pallor Extremities: positive: Non-tender, Full ROM, Nml appearance. negative: Calf tenderness, Joint swelling, Eddi's sign/cords Neurologic/Psychiatric: positive: Sensation nml, Mood/affect nml. negative: Weakness, Sensory loss, Facial droop, Slurred/abnml speech, Depressed mood/affect - Lab Results Fish Bones: 08/04/18 04:30 08/04/18 04:30 Other Labs: Lab Results x24hrs 08/04/18 08/04/18 08/04/18 Range/Units 05:30 05:30 05:30 WBC (4.8-10.8) x10^3/uL RBC (4.70-6.10) 10^6/uL Hgb (14.0-18.0) g/dL Hct (42.0-52.0) % MCV (80.0-94.0) fL MCH (27.0-31.0) pg MCHC (32.0-36.0) g/dL RDW (12.0-15.0) % Plt Count (130-450) 10^3/uL MPV (7.4-11.4) fL Reticulocyte % (Auto) (0.5-2.3) % Neut # (Auto) (1.5-6.6) 10^3/uL Lymph # (Auto) (1.5-3.5) 10^3/uL [place] # (Auto) (0.0-1.0) 10^3/uL Eos # (Auto) (0.0-0.7) 10^3/uL Baso # (Auto) (0.0-0.1) 10^3/uL Absolute Nucleated RBC x10^3/uL Nucleated RBC % /100WBC Absolute Retic (0.020-0.110) 10^6/uL Sodium (135-145) mmol/L Potassium (3.5-5.0) mmol/L Chloride (101-111) mmol/L Carbon Dioxide (21-32) mmol/L Anion Gap (6-13) BUN (6-20) mg/dL Creatinine (0.6-1.2) mg/dL Estimated GFR (MDRD) (>89) Glucose (70-100) mg/dL Lactic Acid (0.5-2.2) mmol/L Calcium (8.5-10.3) mg/dL Iron 28 L (45-182) ug/dL TIBC 178 L (250-450) ug/dL % Saturation 16 L (20-50) % Transferrin 127 L (180-329) mg/dL Ferritin 542.0 H (23.9-336.2) ng/mL Total Bilirubin (0.2-1.0) mg/dL AST (10-42) IU/L ALT (10-60) IU/L Alkaline Phosphatase (42-121) IU/L Lactate Dehydrogenase 210 (91-225) IU/L Troponin I (<0.49) ng/mL B-Natriuretic Peptide (5-100) pg/mL Total Protein (6.7-8.2) g/dL Albumin (3.2-5.5) g/dL Globulin (2.1-4.2) g/dL Albumin/Globulin Ratio (1.0-2.2) Lipase (22-51) U/L Vitamin B12 502 (180-914) pg/mL Urine Color Urine Clarity (CLEAR) Urine pH (5.0-7.5) PH Ur Specific [place] (1.002-1.030) Urine Protein (NEGATIVE) mg/dL Urine Glucose (UA) (NEGATIVE) mg/dL Urine Ketones (NEGATIVE) mg/dL Urine Occult Blood (NEGATIVE) Urine Nitrite (NEGATIVE) Urine Bilirubin (NEGATIVE) Urine Urobilinogen (NORMAL) E.U./dL Ur Leukocyte Esterase (NEGATIVE) Ur Microscopic Review Urine Culture Comments 08/04/18 08/04/18 08/04/18 Range/Units 05:30 04:30 04:30 WBC 6.1 (4.8-10.8) x10^3/uL RBC 3.41 L 3.42 L (4.70-6.10) 10^6/uL Hgb 10.9 L (14.0-18.0) g/dL Hct 30.3 L (42.0-52.0) % MCV 88.8 (80.0-94.0) fL MCH 31.9 H (27.0-31.0) pg MCHC 35.9 (32.0-36.0) g/dL RDW 16.7 H (12.0-15.0) % Plt Count 144 (130-450) 10^3/uL MPV 6.1 L (7.4-11.4) fL Reticulocyte % (Auto) 3.90 H (0.5-2.3) % Neut # (Auto) 5.8 (1.5-6.6) 10^3/uL Lymph # (Auto) 0.1 L (1.5-3.5) 10^3/uL [place] # (Auto) 0.2 (0.0-1.0) 10^3/uL Eos # (Auto) 0.0 (0.0-0.7) 10^3/uL Baso # (Auto) 0.0 (0.0-0.1) 10^3/uL Absolute Nucleated RBC 0.01 x10^3/uL Nucleated RBC % 0.1 /100WBC Absolute Retic 0.133 H (0.020-0.110) 10^6/uL Sodium 132 L (135-145) mmol/L Potassium 3.2 L (3.5-5.0) mmol/L Chloride 96 L (101-111) mmol/L Carbon Dioxide 25 (21-32) mmol/L Anion Gap 11.0 (6-13) BUN 14 (6-20) mg/dL Creatinine 0.6 (0.6-1.2) mg/dL Estimated GFR (MDRD) 129 (>89) Glucose 149 H (70-100) mg/dL Lactic Acid (0.5-2.2) mmol/L Calcium 8.0 L (8.5-10.3) mg/dL Iron (45-182) ug/dL TIBC (250-450) ug/dL % Saturation (20-50) % Transferrin (180-329) mg/dL Ferritin (23.9-336.2) ng/mL Total Bilirubin (0.2-1.0) mg/dL AST (10-42) IU/L ALT (10-60) IU/L Alkaline Phosphatase (42-121) IU/L Lactate Dehydrogenase (91-225) IU/L Troponin I (<0.49) ng/mL B-Natriuretic Peptide (5-100) pg/mL Total Protein (6.7-8.2) g/dL Albumin (3.2-5.5) g/dL Globulin (2.1-4.2) g/dL Albumin/Globulin Ratio (1.0-2.2) Lipase (22-51) U/L Vitamin B12 (180-914) pg/mL Urine Color Urine Clarity (CLEAR) Urine pH (5.0-7.5) PH Ur Specific [place] (1.002-1.030) Urine Protein (NEGATIVE) mg/dL Urine Glucose (UA) (NEGATIVE) mg/dL Urine Ketones (NEGATIVE) mg/dL Urine Occult Blood (NEGATIVE) Urine Nitrite (NEGATIVE) Urine Bilirubin (NEGATIVE) Urine Urobilinogen (NORMAL) E.U./dL Ur Leukocyte Esterase (NEGATIVE) Ur Microscopic Review Urine Culture Comments 08/03/18 08/03/18 08/03/18 Range/Units 21:44 20:03 20:03 WBC (4.8-10.8) x10^3/uL RBC (4.70-6.10) 10^6/uL Hgb (14.0-18.0) g/dL Hct (42.0-52.0) % MCV (80.0-94.0) fL MCH (27.0-31.0) pg MCHC (32.0-36.0) g/dL RDW (12.0-15.0) % Plt Count (130-450) 10^3/uL MPV (7.4-11.4) fL Reticulocyte % (Auto) (0.5-2.3) % Neut # (Auto) (1.5-6.6) 10^3/uL Lymph # (Auto) (1.5-3.5) 10^3/uL [place] # (Auto) (0.0-1.0) 10^3/uL Eos # (Auto) (0.0-0.7) 10^3/uL Baso # (Auto) (0.0-0.1) 10^3/uL Absolute Nucleated RBC x10^3/uL Nucleated RBC % /100WBC Absolute Retic (0.020-0.110) 10^6/uL Sodium (135-145) mmol/L Potassium (3.5-5.0) mmol/L Chloride (101-111) mmol/L Carbon Dioxide (21-32) mmol/L Anion Gap (6-13) BUN (6-20) mg/dL Creatinine (0.6-1.2) mg/dL Estimated GFR (MDRD) (>89) Glucose (70-100) mg/dL Lactic Acid 1.4 (0.5-2.2) mmol/L Calcium (8.5-10.3) mg/dL Iron (45-182) ug/dL TIBC (250-450) ug/dL % Saturation (20-50) % Transferrin (180-329) mg/dL Ferritin (23.9-336.2) ng/mL Total Bilirubin (0.2-1.0) mg/dL AST (10-42) IU/L ALT (10-60) IU/L Alkaline Phosphatase (42-121) IU/L Lactate Dehydrogenase (91-225) IU/L Troponin I (<0.49) ng/mL B-Natriuretic Peptide 147 H (5-100) pg/mL Total Protein (6.7-8.2) g/dL Albumin (3.2-5.5) g/dL Globulin (2.1-4.2) g/dL Albumin/Globulin Ratio (1.0-2.2) Lipase (22-51) U/L Vitamin B12 (180-914) pg/mL Urine Color YELLOW Urine Clarity CLEAR (CLEAR) Urine pH 6.0 (5.0-7.5) PH Ur Specific [place] 1.010 (1.002-1.030) Urine Protein TRACE (NEGATIVE) mg/dL Urine Glucose (UA) NEGATIVE (NEGATIVE) mg/dL Urine Ketones >=80 H (NEGATIVE) mg/dL Urine Occult Blood TRACE-INTA (NEGATIVE) Urine Nitrite NEGATIVE (NEGATIVE) Urine Bilirubin NEGATIVE (NEGATIVE) Urine Urobilinogen 4 H (NORMAL) E.U./dL Ur Leukocyte Esterase NEGATIVE (NEGATIVE) Ur Microscopic Review NOT INDICATED Urine Culture Comments NOT INDICATED 08/03/18 08/03/18 08/03/18 Range/Units 20:03 20:03 20:03 WBC 6.4 (4.8-10.8) x10^3/uL RBC 3.89 L (4.70-6.10) 10^6/uL Hgb 12.2 L (14.0-18.0) g/dL Hct 34.8 L (42.0-52.0) % MCV 89.4 (80.0-94.0) fL MCH 31.3 H (27.0-31.0) pg MCHC 35.1 (32.0-36.0) g/dL RDW 16.6 H (12.0-15.0) % Plt Count 165 (130-450) 10^3/uL MPV 5.9 L (7.4-11.4) fL Reticulocyte % (Auto) (0.5-2.3) % Neut # (Auto) 5.7 (1.5-6.6) 10^3/uL Lymph # (Auto) 0.2 L (1.5-3.5) 10^3/uL [place] # (Auto) 0.5 (0.0-1.0) 10^3/uL Eos # (Auto) 0.0 (0.0-0.7) 10^3/uL Baso # (Auto) 0.0 (0.0-0.1) 10^3/uL Absolute Nucleated RBC 0.01 x10^3/uL Nucleated RBC % 0.2 /100WBC Absolute Retic (0.020-0.110) 10^6/uL Sodium 132 L (135-145) mmol/L Potassium 3.2 L (3.5-5.0) mmol/L Chloride 97 L (101-111) mmol/L Carbon Dioxide 25 (21-32) mmol/L Anion Gap 10.0 (6-13) BUN 16 (6-20) mg/dL Creatinine 0.7 (0.6-1.2) mg/dL Estimated GFR (MDRD) 108 (>89) Glucose 117 H (70-100) mg/dL Lactic Acid (0.5-2.2) mmol/L Calcium 8.4 L (8.5-10.3) mg/dL Iron (45-182) ug/dL TIBC (250-450) ug/dL % Saturation (20-50) % Transferrin (180-329) mg/dL Ferritin (23.9-336.2) ng/mL Total Bilirubin 2.6 H (0.2-1.0) mg/dL AST 27 (10-42) IU/L ALT 32 (10-60) IU/L Alkaline Phosphatase 158 H (42-121) IU/L Lactate Dehydrogenase (91-225) IU/L Troponin I < 0.04 (<0.49) ng/mL B-Natriuretic Peptide (5-100) pg/mL Total Protein 6.6 L (6.7-8.2) g/dL Albumin 3.5 (3.2-5.5) g/dL Globulin 3.1 (2.1-4.2) g/dL Albumin/Globulin Ratio 1.1 (1.0-2.2) Lipase 21 L (22-51) U/L Vitamin B12 (180-914) pg/mL Urine Color Urine Clarity (CLEAR) Urine pH (5.0-7.5) PH Ur Specific [place] (1.002-1.030) Urine Protein (NEGATIVE) mg/dL Urine Glucose (UA) (NEGATIVE) mg/dL Urine Ketones (NEGATIVE) mg/dL Urine Occult Blood (NEGATIVE) Urine Nitrite (NEGATIVE) Urine Bilirubin (NEGATIVE) Urine Urobilinogen (NORMAL) E.U./dL Ur Leukocyte Esterase (NEGATIVE) Ur Microscopic Review Urine Culture Comments ABX Reporting Has patient been on IV antibiotics over the past 48 hours?: Yes Sepsis Event Note (H) - Evaluation Possible source of Sepsis: positive: Pulmonary - Sepsis Criteria Sepsis Criteria: Suspected or Documented, Respiratory: Increasing oxygen requirements Assessment/Plan - Problem List (1) Pneumonia Impression: pt repot he took 2 liter of O2 daily base. not he has 93% with 5 liter of O2 now continue antibiotics continue breath treatment as needed (2) pulmonary HTN Conclusion/Plan: recently CTA of chest reveals pt has pulmonary HTN, will continue supplement O2, vital monitor (3) severe emphysema/COPD (chronic obstructive pulmonary disease) Conclusion/Plan: duoneb, albuterol PRN supplement of O2 as needed (4) Encephalopathy Conclusion/Plan: improved, pt is more oriented (5) Esophageal cancer Conclusion/Plan: followup oncologist, pain control (6) Hypertension Conclusion/Plan: stable, continue home meds On amlodipine and metoprolol Resume once verified (7) GERD (gastroesophageal reflux disease) Conclusion/Plan: Protonix ordered Qualifiers: Pneumonia type: due to unspecified organism Laterality: bilateral Lung location: unspecified part of lung Qualified Code(s): J18.9 - Pneumonia, unspecified organism
[2018-08-04] MEDS: MULTIVITAMIN W/MINERALS TABLET PO SCH (17:53)
[2018-08-04] MEDS: SACCHAROMYCES BOULARDII 250 MG CAPSULE PO SCH (17:53)
[2018-08-04] MEDS ORDERED: AZITHROMYCIN 250 MG TABLET PO SCH (21:00)
[2018-08-04] MEDS: SODIUM CHLORIDE FLUSH 0.9% 10 ML SYRINGE IVP PRN (21:48)
[2018-08-04] MEDS ORDERED: cefTRIAXone 1 GM in SODIUM CHLORIDE 0.9% MINIBAG 100 ML IV SCH (22:00)
[2018-08-05] MEDS ORDERED: MORPHINE IR 15 MG TABLET PO PRN (00:44)
[2018-08-05] MEDS: MORPHINE IR 15 MG TABLET PO SCH ×4 (01:14→18:55)
[2018-08-05] MEDS: IBUPROFEN 600 MG TABLET PO SCH ×4 (01:14→18:56)
[2018-08-05] MEDS: SODIUM CHLORIDE FLUSH 0.9% 10 ML SYRINGE IVP SCH ×3 (01:15→17:37)
[2018-08-05 05:01] LABS: BASOPHILS % (AUTO) 0.1 %; EOSINOPHILS % (AUTO) 0.2 %; HGB - HEMOGLOBIN 10.6 g/dL (14.0-18.0); LYMPHOCYTES # (AUTO) 0.2 10^3/uL (1.5-3.5); LYMPHOCYTES % (AUTO) 3.2 %; MEAN CORPUSCULAR HEMOGLOBIN 31.6 pg (27.0-31.0); MEAN CORPUSCULAR HGB CONC 35.3 g/dL (32.0-36.0); MEAN CORPUSCULAR VOLUME 89.5 fL (80.0-94.0); MEAN PLATELET VOLUME 6.2 fL (7.4-11.4); MONOCYTES # (AUTO) 0.5 10^3/uL (0.0-1.0); MONOCYTES % (AUTO) 8.9 %; NEUTROPHILS # (AUTO) 5.3 10^3/uL (1.5-6.6); NEUTROPHILS % (AUTO) 87.6 %; PLT - PLATELET COUNT 156 10^3/uL (130-450); RED BLOOD COUNT 3.34 10^6/uL (4.70-6.10); RED CELL DISTRIBUTION WIDTH 16.7 % (12.0-15.0)
[2018-08-05 05:12] LABS: ALBUMIN 2.7 g/dL (3.2-5.5); CALCIUM 8.2 mg/dL (8.5-10.3); CREATININE 0.6 mg/dL (0.6-1.2); TOTAL PROTEIN 5.5 g/dL (6.7-8.2)
[2018-08-05] MEDS: PANTOPRAZOLE 40 MG TABLET PO SCH (06:22)
[2018-08-05] MEDS: IPRATROPIUM/ALBUTEROL 3 ML NEB INH PRN ×3 (07:19→15:25)
[2018-08-05] MEDS: SACCHAROMYCES BOULARDII 250 MG CAPSULE PO SCH ×2 (08:33→17:37)
[2018-08-05] MEDS: FERROUS SULFATE 325 MG TABLET PO SCH ×2 (08:33→17:36)
[2018-08-05] MEDS: MULTIVITAMIN W/MINERALS TABLET PO SCH (08:34)
[2018-08-05] MEDS: METOPROLOL SUCCINATE 25 MG TABLET PO SCH (08:35)
[2018-08-05] MEDS: ASPIRIN CHEW 81 MG TABLET PO SCH (08:35)
[2018-08-05] MEDS: AZITHROMYCIN 250 MG TABLET PO SCH (08:35)
[2018-08-05] MEDS: amLODIPine 5 MG TABLET PO SCH (08:35)
[2018-08-05] MEDS: POLYETHYLENE GLYCOL 3350 17 GM PACKET PO SCH (08:35)
[2018-08-05] MEDS: ENOXAPARIN 40 MG/0.4 ML SYRINGE SUBQ SCH (08:35)
[2018-08-05] MEDS ORDERED: IOVERSOL 320 100 ML VIAL IVP ONE ×2 (08:42→09:21)
--- NOTE | 2018-08-05 10:41 | CT Report ---
Reason: SOB, metastatic, current esopheal cancer Procedure Date: 08/05/2018 Accession Number: [id number] / [id number] Procedure: CT - CHEST W CPT Code: FULL RESULT: EXAM: CT CHEST EXAM DATE: 08/05/2018 09:20 AM. CLINICAL HISTORY: SOB, metastatic, current esophogeal cancer. COMPARISONS: CHEST ANGIO 06/14/2018 4:01 PM. TECHNIQUE: Routine helical CT imaging was performed through the chest. IV contrast: None. Reconstructions: Coronal and sagittal. In accordance with CT protocol optimization, one or more of the following dose reduction techniques were utilized for this exam: automated exposure control, adjustment of mA and/or KV based on patient size, or use of iterative reconstructive technique. FINDINGS: Lungs/Pleura: Severe emphysematous changes. Paraseptal, centrilobular emphysema. Bronchiectasis. Honeycombing. Infiltrate in the right upper lobe, right middle lobe, left upper lobe left lingula. Bilateral lower lobe areas of atelectasis. Right lower lobe posterior segment 5 mm nodule (4, 44) Left lower lobe posterior segment 9 mm nodule (4, 48) Other small nodules lower lung field. Mediastinum: Coronary artery calcifications . Subcentimeter lymph nodes. Top normal heart size. Enlarged pulmonary arteries. Ascending aorta ectasia 3.9 cm stable. Fluid-filled esophagus. Bones: DJD spine Visualized Abdomen: Right renal cysts. Moderate-sized hiatal hernia. Diverticulosis. Other: None. IMPRESSION: 1. Infiltrate in the right upper lobe, right middle lobe, left upper lobe and lingula. 2. Small bilateral lower lung nodules largest 9 mm. 3. Severe emphysematous changes. 4. Fluid-filled esophagus. Moderate-sized hiatal hernia 5. Enlarged pulmonary arteries consistent with pulmonary artery hypertension. RADIA
--- NOTE | 2018-08-05 10:44 | Ultrasound Report ---
Reason: elevated bili, metastatic Procedure Date: 08/04/2018 Accession Number: [id number] / [id number] Procedure: US - Abdomen Limited CPT Code: FULL RESULT: EXAM: ABDOMEN ULTRASOUND LIMITED, RUQ EXAM DATE: 08/04/2018 04:51 PM. CLINICAL HISTORY: Elevated bili, metastatic. COMPARISON: None. TECHNIQUE: Real-time scanning was performed with static images obtained. FINDINGS: The exam was technically difficult and is limited due to overlying obscuring bowel gas and the patient's labored breathing. Liver: Normal in size and echotexture. No mass demonstrated. Normal size, 15.6 cm. Main portal vein flow: Hepatopetal. Gallbladder: Normal. No stones, wall thickening, or sonographic Burkett's sign. Biliary System: CBD measures 5 mm. No intrahepatic or extrahepatic ductal dilatation. Other: No free fluid. Right kidney length is 11.6 cm. Multiple right renal cysts demonstrated measuring up to 3.4 cm. IMPRESSION: 1. The exam is limited by overlying obscuring bowel gas. 2. No acute abnormality or finding suspicious for metastatic disease within the right upper quadrant. If further evaluation where indicated, CT imaging with contrast would be recommended. 3. Multiple right renal cysts measuring up to 3.4 cm. RADIA
[2018-08-05 12:07] LABS: ABG OXYGEN SATURATION 94 % (94-98); ABG PCO2 34 mmHg (34-45); ABG PH 7.49 (7.35-7.45); ABG PO2 68 mmHg (80-100)
[2018-08-05 12:08] LABS: ALLEN TEST POSITIVE
[2018-08-05] MEDS: SPIRONOLACTONE 25 MG TABLET PO SCH (13:14)
[2018-08-05] MEDS: methylPREDNISolone SUCCINATE 40 MG/ML VIAL IVP SCH ×2 (13:15→22:19)
[2018-08-05] MEDS: CEFEPIME 1 GM in SODIUM CHLORIDE 0.9% MINIBAG 100 ML IV SCH ×2 (13:15→22:19)
--- NOTE | 2018-08-05 13:43 | PROVIDER PROGRESS NOTE ---
Subjective - Subjective Pt reports feeling: Worse Subjective: pt report he feel more SOB. pt present mild dry cough, no fever or chill. pt denies chest pain. ABG is ordered, which show pt had PO2 67.7, PH 7.487, 94% sats. Rocephin antibiotics is switch to Cefepim. Pt's WBC is 6.0. Current Medications - Current Medications Current Medications: Active Medications Acetaminophen (Tylenol) 650 mg PO Q4HR PRN PRN Reason: Pain 1 to 4 Albuterol () 2.5 mg INH RTQ4H PRN PRN Reason: Wheezing Albuterol/Ipratropium (Duoneb) 3 ml INH Q4HR PRN PRN Reason: Wheezing Last Admin: 08/05/18 15:25 Dose: 3 ml Albuterol/Ipratropium (Duoneb) 3 ml INH RTQID [facility] Last Admin: 08/06/18 11:27 Dose: 3 ml Amlodipine Besylate (Norvasc) 5 mg PO DAILY [facility] Last Admin: 08/06/18 09:31 Dose: 5 mg Aspirin ([place] Aspirin) 81 mg PO DAILY [facility] Last Admin: 08/06/18 09:31 Dose: 81 mg Enoxaparin Sodium (Lovenox) 40 mg SUBQ DAILY [facility] Last Admin: 08/06/18 11:31 Dose: Not Given Ferrous Sulfate (Feosol) 325 mg PO BIDWM [facility] Last Admin: 08/06/18 09:31 Dose: 325 mg Heparin Sodium (Beef Lung) () 30 - 50 unit IVP PRN PRN PRN Reason: Port Protocol (<24 hours) Last Admin: 08/06/18 05:51 Dose: 50 unit Cefepime HCl 1 gm/ Sodium (Chloride) 100 mls @ 200 mls/hr IV TID [facility] Last Infusion: 08/06/18 13:35 Dose: Infused Vancomycin HCl 1 gm/Vancomycin HCl 250 mg/ Sodium Chloride 250 mls @ 167 mls/hr IV Q12H [facility] Ibuprofen (Motrin) 600 mg PO Q6H [facility] Last Admin: 08/06/18 12:57 Dose: 600 mg Methylprednisolone (Solu-Medrol (40mg Vial)) 40 mg IVP TID [facility] Last Admin: 08/06/18 12:57 Dose: 40 mg Metoprolol Succinate (Toprol Xl) 25 mg PO DAILY [facility] Last Admin: 08/06/18 09:32 Dose: 25 mg Morphine Sulfate (Ms Ir) 7.5 mg PO Q6H [facility] Last Admin: 08/06/18 12:56 Dose: 7.5 mg Morphine Sulfate (Morphine) 3 mg IVP Q2H PRN PRN Reason: PAIN Last Admin: 08/06/18 09:40 Dose: 3 mg Multivitamins/Minerals (Theragran M) 1 tab PO DAILYWM [facility] Last Admin: 08/06/18 09:31 Dose: 1 tab Pantoprazole Sodium (Protonix) 40 mg PO QDAC [facility] Last Admin: 08/06/18 05:56 Dose: 40 mg Polyethylene Glycol (Miralax) 17 gm PO DAILY [facility] Last Admin: 08/06/18 09:32 Dose: 17 gm Saccharomyces Boulardii (Florastor) 250 mg PO BIDWM [facility] Last Admin: 08/06/18 09:31 Dose: 250 mg Sodium Chloride (Normal Saline Flush 0.9%) 10 ml IVP PRN PRN PRN Reason: NEEDED PER PROVIDER ORDERS Last Admin: 08/06/18 07:01 Dose: 10 ml Sodium Chloride (Normal Saline Flush 0.9%) 10 ml IVP 0100,0900,1700 [facility] Last Admin: 08/06/18 06:05 Dose: 10 ml Spironolactone (Aldactone) 12.5 mg PO DAILY [facility] Last Admin: 08/06/18 09:32 Dose: 12.5 mg Aspirin 81 mg PO DAILY 08/03/18 Ibuprofen 600 mg PO Q6H 08/03/18 Metoprolol Succinate 25 mg PO DAILY 08/03/18 Morphine Ir [Ms Ir] 7.5 mg PO Q6H 08/03/18 Prochlorperazine Maleate [Compazine] 10 mg PO Q6H PRN 08/03/18 amLODIPine [Norvasc] 5 mg PO DAILY 08/03/18 Esomeprazole Magnesium [Nexium] 40 mg PO QDAC 08/04/18 Tiotropium [place] [Spiriva Respimat] 2 puffs INH DAILY 08/04/18 Objective - Vital Signs/Intake & Output Reviewed Vital Signs: Yes Vital Signs: Vital Signs x48h Temp Pulse Pulse Resp BP Pulse Ox 08/05/18 11:10 82 20 08/05/18 08:00 36.3 C L 83 15 131/63 H 93 08/05/18 07:20 79 22 Intake & Output: Intake & Output 08/02/18 08/03/18 08/04/18 08/05/18 23:59 23:59 23:59 23:59 Intake Total 100 1320 550 Balance 100 1320 550 - Objective General Appearance: positive: No acute distress, Alert. negative: Lethargic Eyes Bilateral: positive: Normal inspection, PERRL, No lid inflammation, Conjunctivae nml ENT: positive: ENT inspection nml, Pharynx nml, No signs of dehydration. negative: Purulent nasal drainage, Pharyngeal erythema, Oral lesions Neck: positive: Nml inspection, Thyroid nml, No JVD, Trachea midline. negative: Thyromegaly, Lymphadenopathy (R), Lymphadenopathy (L), Stiff neck, Swelling/bruising, Tracheal deviation Respiratory: positive: Chest non-tender, Rales. negative: No respiratory distress, Breath sounds nml, Wheezes, Rhonchi Cardiovascular: positive: Regular rate & rhythm, No murmur, No gallop. negative: Irregularly irregular, Extrasystoles, Tachycardia, Bradycardia, JVD present, Systolic murmur, Diastolic murmur Peripheral Pulses: 2+ Radial (R), 2+ Radial (L), 2+ Dorsalis pedis (R), 2+ Dorsalis pedis (L) Abdomen: positive: Non-tender, No organomegaly, Nml bowel sounds, No distention. negative: Tenderness, Guarding, Rebound Back: positive: Nml inspection. negative: CVA tenderness (R), CVA tenderness (L) Skin: positive: Color nml, No rash, Warm, Dry. negative: Cyanosis, Diaphoresis, Pallor Extremities: positive: Non-tender, Full ROM, Nml appearance. negative: Calf tenderness, Joint swelling, Eddi's sign/cords - Lab Results Fish Bones: 08/06/18 05:54 08/06/18 05:54 Other Labs: Lab Results x24hrs 08/05/18 08/05/18 08/05/18 Range/Units 11:55 04:43 04:43 WBC 6.0 (4.8-10.8) x10^3/uL RBC 3.34 L (4.70-6.10) 10^6/uL Hgb 10.6 L (14.0-18.0) g/dL Hct 29.9 L (42.0-52.0) % MCV 89.5 (80.0-94.0) fL MCH 31.6 H (27.0-31.0) pg MCHC 35.3 (32.0-36.0) g/dL RDW 16.7 H (12.0-15.0) % Plt Count 156 (130-450) 10^3/uL MPV 6.2 L (7.4-11.4) fL Neut # (Auto) 5.3 (1.5-6.6) 10^3/uL Lymph # (Auto) 0.2 L (1.5-3.5) 10^3/uL [place] # (Auto) 0.5 (0.0-1.0) 10^3/uL Eos # (Auto) 0.0 (0.0-0.7) 10^3/uL Baso # (Auto) 0.0 (0.0-0.1) 10^3/uL Absolute Nucleated RBC 0.01 x10^3/uL Nucleated RBC % 0.1 /100WBC Bld Gas Analysis Time 1207 Sample Site RIGHT BRACHIAL ABG pH 7.49 H (7.35-7.45) ABG pCO2 34 (34-45) mmHg ABG pO2 68 L (80-100) mmHg ABG HCO3 25.0 (22.0-26.0) mmol/L ABG Total CO2 26.0 (21.0-29.0) MMOL/L ABG O2 Saturation 94 (94-98) % ABG Oximetry Spot Check 94 % ABG Base Excess 2.0 (-2.0-3.0) mmol/L Los Test POSITIVE Respiration Rate 30 b/min O2 Delivery Device NON REBREATHER MASK O2 Liters/Min 15.00 LPM Sodium 138 (135-145) mmol/L Potassium 3.7 (3.5-5.0) mmol/L Chloride 102 (101-111) mmol/L Carbon Dioxide 29 (21-32) mmol/L Anion Gap 7.0 (6-13) BUN 20 (6-20) mg/dL Creatinine 0.6 (0.6-1.2) mg/dL Estimated GFR (MDRD) 129 (>89) Glucose 119 H (70-100) mg/dL Calcium 8.2 L (8.5-10.3) mg/dL Total Bilirubin 1.0 (0.2-1.0) mg/dL AST 17 (10-42) IU/L ALT 24 (10-60) IU/L Alkaline Phosphatase 136 H (42-121) IU/L Total Protein 5.5 L (6.7-8.2) g/dL Albumin 2.7 L (3.2-5.5) g/dL Globulin 2.8 (2.1-4.2) g/dL Albumin/Globulin Ratio 1.0 (1.0-2.2) ABX Reporting Has patient been on IV antibiotics over the past 48 hours?: Yes Sepsis Event Note (H) - Evaluation Possible source of Sepsis: positive: Pulmonary - Sepsis Criteria Sepsis Criteria: Suspected or Documented, Respiratory: Increasing oxygen requirements Assessment/Plan - Problem List (1) Pneumonia Impression: (1)respiratory failure with hypoxia pt repot he use 5-6 liter of O2 at home recently. today he feel more SOB. RT put pt on high Fio80%. ABG is ordered, which show pt had PO2 67.7, PH 7.487, 94% sats. continue treat with antibiotics continue monitor closely, supplement O2 (2) Pneumonia Impression: 08/05 pt had normal WBC, mild dry cough, no fever/chill. CXR reveal pneumonia switch antibiotics to Cefepim continue supplement O2, consult with RT pt repot he took 2 liter of O2 daily base. not he has 93% with 5 liter of O2 now continue antibiotics continue breath treatment as needed (3) pulmonary HTN Conclusion/Plan: 08/05 pt also has slight HTN, add spironolacton recently CTA of chest reveals pt has pulmonary HTN, will continue supplement O2, vital monitor (4) severe emphysema/COPD (chronic obstructive pulmonary disease) Conclusion/Plan: 08/05 add solu-medrol 40mg Tid continue Duoneb, Albuterol duoneb, albuterol PRN supplement of O2 as needed (5) Encephalopathy Conclusion/Plan: improved, pt is more oriented (6) Esophageal cancer Conclusion/Plan: followup oncologist, pain control (7) Hypertension Conclusion/Plan: stable, continue home meds On amlodipine and metoprolol Resume once verified (8) GERD (gastroesophageal reflux disease) Conclusion/Plan: Protonix ordered Qualifiers: Pneumonia type: due to unspecified organism Laterality: bilateral Lung location: unspecified part of lung Qualified Code(s): J18.9 - Pneumonia, unspecified organism
[2018-08-05] MEDS: MORPHINE 2 MG/ML SYRINGE IVP PRN ×3 (15:11→22:20)
[2018-08-05] MEDS: IPRATROPIUM/ALBUTEROL 3 ML NEB INH SCH (19:14)
[2018-08-06] MEDS: MORPHINE IR 15 MG TABLET PO SCH ×4 (01:16→18:10)
[2018-08-06] MEDS: IBUPROFEN 600 MG TABLET PO SCH ×4 (01:17→18:10)
[2018-08-06] MEDS: SODIUM CHLORIDE FLUSH 0.9% 10 ML SYRINGE IVP SCH ×3 (01:17→06:05)
[2018-08-06] MEDS: MORPHINE 2 MG/ML SYRINGE IVP PRN ×4 (04:10→15:18)
[2018-08-06] MEDS: SODIUM CHLORIDE FLUSH 0.9% 10 ML SYRINGE IVP PRN ×3 (04:11→07:01)
[2018-08-06] MEDS: CEFEPIME 1 GM in SODIUM CHLORIDE 0.9% MINIBAG 100 ML IV SCH ×3 (05:55→22:29)
[2018-08-06] MEDS: methylPREDNISolone SUCCINATE 40 MG/ML VIAL IVP SCH ×3 (05:56→22:29)
[2018-08-06] MEDS: PANTOPRAZOLE 40 MG TABLET PO SCH (05:56)
[2018-08-06 06:04] LABS: BASOPHILS % (AUTO) 0.1 %; HGB - HEMOGLOBIN 10.6 g/dL (14.0-18.0); LYMPHOCYTES # (AUTO) 0.1 10^3/uL (1.5-3.5); LYMPHOCYTES % (AUTO) 2.3 %; MEAN CORPUSCULAR HEMOGLOBIN 31.4 pg (27.0-31.0); MEAN CORPUSCULAR HGB CONC 35.2 g/dL (32.0-36.0); MEAN CORPUSCULAR VOLUME 89.1 fL (80.0-94.0); MEAN PLATELET VOLUME 5.9 fL (7.4-11.4); MONOCYTES # (AUTO) 0.3 10^3/uL (0.0-1.0); MONOCYTES % (AUTO) 4.6 %; NEUTROPHILS # (AUTO) 5.4 10^3/uL (1.5-6.6); PLT - PLATELET COUNT 157 10^3/uL (130-450); RED BLOOD COUNT 3.37 10^6/uL (4.70-6.10); RED CELL DISTRIBUTION WIDTH 16.6 % (12.0-15.0); WHITE BLOOD COUNT 5.9 x10^3/uL (4.8-10.8)
[2018-08-06 06:16] LABS: ALBUMIN 2.8 g/dL (3.2-5.5); BILIRUBIN,TOTAL 1.2 mg/dL (0.2-1.0); CALCIUM 8.1 mg/dL (8.5-10.3); CREATININE 0.5 mg/dL (0.6-1.2); TOTAL PROTEIN 5.6 g/dL (6.7-8.2)
[2018-08-06] MEDS: IPRATROPIUM/ALBUTEROL 3 ML NEB INH SCH ×4 (07:41→19:51)
[2018-08-06] MEDS: ASPIRIN CHEW 81 MG TABLET PO SCH (09:31)
[2018-08-06] MEDS: amLODIPine 5 MG TABLET PO SCH (09:31)
[2018-08-06] MEDS: SACCHAROMYCES BOULARDII 250 MG CAPSULE PO SCH ×2 (09:31→17:05)
[2018-08-06] MEDS: MULTIVITAMIN W/MINERALS TABLET PO SCH (09:31)
[2018-08-06] MEDS: FERROUS SULFATE 325 MG TABLET PO SCH ×2 (09:31→17:05)
[2018-08-06] MEDS: SPIRONOLACTONE 25 MG TABLET PO SCH (09:32)
[2018-08-06] MEDS: METOPROLOL SUCCINATE 25 MG TABLET PO SCH (09:32)
[2018-08-06] MEDS: POLYETHYLENE GLYCOL 3350 17 GM PACKET PO SCH (09:32)
[2018-08-06] MEDS: AZITHROMYCIN 250 MG TABLET PO SCH (09:32)
[2018-08-06] MEDS: ENOXAPARIN 40 MG/0.4 ML SYRINGE SUBQ SCH (11:31)
[2018-08-06 12:18] LABS: ABG BASE EXCESS 0.2 mmol/L (-2.0-3.0); ABG HCO3 23.6 mmol/L (22.0-26.0); ABG OXYGEN SATURATION 93 % (94-98); ABG PCO2 34 mmHg (34-45); ABG PH 7.46 (7.35-7.45); ABG PO2 65 mmHg (80-100); ABG TCO2 24.6 MMOL/L (21.0-29.0); ALLEN TEST POSITIVE
[2018-08-06] MEDS ORDERED: VANCOMYCIN PER PHARMACY 1 GM in SODIUM CHLORIDE 0.9% 250 ML IV SCH (14:00)
[2018-08-06] MEDS ORDERED: methylPREDNISolone SUCCINATE 40 MG/ML VIAL IVP SCH ×2 (14:00)
--- NOTE | 2018-08-06 15:05 | PROVIDER PROGRESS NOTE ---
Subjective - Prog Note Date Prog Note Date: 08/06/18 - Subjective Pt reports feeling: No change Subjective: Today pt's mental status is better, pt can clearly talk with me. today new ABG reveals PO2 65% with sats 93% on 80% FIO. use antibiotics Cefepim and Vancomycin. Will closely monitor pt if pt need BIPAP. Current Medications - Current Medications Current Medications: Active Medications Acetaminophen (Tylenol) 650 mg PO Q4HR PRN PRN Reason: Pain 1 to 4 Albuterol () 2.5 mg INH RTQ4H PRN PRN Reason: Wheezing Albuterol/Ipratropium (Duoneb) 3 ml INH Q4HR PRN PRN Reason: Wheezing Last Admin: 08/05/18 15:25 Dose: 3 ml Albuterol/Ipratropium (Duoneb) 3 ml INH RTQID [facility] Last Admin: 08/06/18 11:27 Dose: 3 ml Amlodipine Besylate (Norvasc) 5 mg PO DAILY [facility] Last Admin: 08/06/18 09:31 Dose: 5 mg Aspirin ([place] Aspirin) 81 mg PO DAILY [facility] Last Admin: 08/06/18 09:31 Dose: 81 mg Enoxaparin Sodium (Lovenox) 40 mg SUBQ DAILY [facility] Last Admin: 08/06/18 11:31 Dose: Not Given Ferrous Sulfate (Feosol) 325 mg PO BIDWM [facility] Last Admin: 08/06/18 09:31 Dose: 325 mg Heparin Sodium (Beef Lung) () 30 - 50 unit IVP PRN PRN PRN Reason: Port Protocol (<24 hours) Last Admin: 08/06/18 05:51 Dose: 50 unit Cefepime HCl 1 gm/ Sodium (Chloride) 100 mls @ 200 mls/hr IV TID [facility] Last Infusion: 08/06/18 13:35 Dose: Infused Vancomycin HCl 1 gm/Vancomycin HCl 250 mg/ Sodium Chloride 250 mls @ 167 mls/hr IV Q12H [facility] Ibuprofen (Motrin) 600 mg PO Q6H [facility] Last Admin: 08/06/18 12:57 Dose: 600 mg Methylprednisolone (Solu-Medrol (40mg Vial)) 40 mg IVP TID [facility] Last Admin: 08/06/18 12:57 Dose: 40 mg Metoprolol Succinate (Toprol Xl) 25 mg PO DAILY [facility] Last Admin: 08/06/18 09:32 Dose: 25 mg Morphine Sulfate (Ms Ir) 7.5 mg PO Q6H [facility] Last Admin: 08/06/18 12:56 Dose: 7.5 mg Morphine Sulfate (Morphine) 3 mg IVP Q2H PRN PRN Reason: PAIN Last Admin: 08/06/18 09:40 Dose: 3 mg Multivitamins/Minerals (Theragran M) 1 tab PO DAILYWM [facility] Last Admin: 08/06/18 09:31 Dose: 1 tab Pantoprazole Sodium (Protonix) 40 mg PO QDAC [facility] Last Admin: 08/06/18 05:56 Dose: 40 mg Polyethylene Glycol (Miralax) 17 gm PO DAILY [facility] Last Admin: 08/06/18 09:32 Dose: 17 gm Saccharomyces Boulardii (Florastor) 250 mg PO BIDWM [facility] Last Admin: 08/06/18 09:31 Dose: 250 mg Sodium Chloride (Normal Saline Flush 0.9%) 10 ml IVP PRN PRN PRN Reason: NEEDED PER PROVIDER ORDERS Last Admin: 08/06/18 07:01 Dose: 10 ml Sodium Chloride (Normal Saline Flush 0.9%) 10 ml IVP 0100,0900,1700 [facility] Last Admin: 08/06/18 06:05 Dose: 10 ml Spironolactone (Aldactone) 12.5 mg PO DAILY [facility] Last Admin: 08/06/18 09:32 Dose: 12.5 mg Aspirin 81 mg PO DAILY 08/03/18 Ibuprofen 600 mg PO Q6H 08/03/18 Metoprolol Succinate 25 mg PO DAILY 08/03/18 Morphine Ir [Ms Ir] 7.5 mg PO Q6H 08/03/18 Prochlorperazine Maleate [Compazine] 10 mg PO Q6H PRN 08/03/18 amLODIPine [Norvasc] 5 mg PO DAILY 08/03/18 Esomeprazole Magnesium [Nexium] 40 mg PO QDAC 08/04/18 Tiotropium [place] [Spiriva Respimat] 2 puffs INH DAILY 08/04/18 Objective - Vital Signs/Intake & Output Reviewed Vital Signs: Yes Vital Signs: Vital Signs x48h Temp Pulse Pulse Resp BP Pulse Ox 08/06/18 11:30 83 22 08/06/18 08:00 36.5 C 95 24 145/87 H 91 L 08/06/18 07:42 83 20 Intake & Output: Intake & Output 08/03/18 08/04/18 08/05/18 08/06/18 23:59 23:59 23:59 23:59 Intake Total 100 1320 1750 300 Output Total 100 800 Balance 100 1320 1650 -500 - Objective General Appearance: positive: No acute distress, Alert. negative: Lethargic Eyes Bilateral: positive: Normal inspection, PERRL, No lid inflammation, Conjunctivae nml ENT: positive: ENT inspection nml, Pharynx nml, No signs of dehydration. negative: Purulent nasal drainage, Pharyngeal erythema, Oral lesions Neck: positive: Nml inspection, Thyroid nml, No JVD, Trachea midline. negative: Thyromegaly, Lymphadenopathy (R), Lymphadenopathy (L), Stiff neck, Swelling/bruising, Tracheal deviation Respiratory: positive: Chest non-tender, Rales. negative: No respiratory distress, Breath sounds nml, Wheezes, Rhonchi Cardiovascular: positive: Regular rate & rhythm, No murmur, No gallop. negative: Irregularly irregular, Extrasystoles, Tachycardia, Bradycardia, JVD present, Systolic murmur, Diastolic murmur Peripheral Pulses: 2+ Radial (R), 2+ Radial (L), 2+ Dorsalis pedis (R), 2+ Dorsalis pedis (L) Abdomen: positive: Non-tender, No organomegaly, Nml bowel sounds, No distention. negative: Tenderness, Guarding, Rebound Back: positive: Nml inspection. negative: CVA tenderness (R), CVA tenderness (L) Skin: positive: Color nml, No rash, Warm, Dry. negative: Cyanosis, Diaphoresis, Pallor Extremities: positive: Non-tender, Full ROM, Nml appearance. negative: Calf te nderness, Joint swelling, Eddi's sign/cords Neurologic/Psychiatric: positive: Oriented x3, Sensation nml, Mood/affect nml. negative: Weakness, Sensory loss, Facial droop, Slurred/abnml speech, Depressed mood/affect - Lab Results Fish Bones: 08/06/18 05:54 08/06/18 05:54 Other Labs: Lab Results x24hrs 08/06/18 08/06/1819 Range/Units 14:23 12:09 05:54 WBC (4.8-10.8) x10^3/uL RBC (4.70-6.10) 10^6/uL Hgb (14.0-18.0) g/dL Hct (42.0-52.0) % MCV (80.0-94.0) fL MCH (27.0-31.0) pg MCHC (32.0-36.0) g/dL RDW (12.0-15.0) % Plt Count (130-450) 10^3/uL MPV (7.4-11.4) fL Neut # (Auto) (1.5-6.6) 10^3/uL Lymph # (Auto) (1.5-3.5) 10^3/uL [place] # (Auto) (0.0-1.0) 10^3/uL Eos # (Auto) (0.0-0.7) 10^3/uL Baso # (Auto) (0.0-0.1) 10^3/uL Absolute Nucleated RBC x10^3/uL Nucleated RBC % /100WBC Bld Gas Analysis Time 1209 Sample Site RIGHT RADIAL ABG pH 7.46 H (7.35-7.45) ABG pCO2 34 (34-45) mmHg ABG pO2 65 L (80-100) mmHg ABG HCO3 23.6 (22.0-26.0) mmol/L ABG Total CO2 24.6 (21.0-29.0) MMOL/L ABG O2 Saturation 93 L (94-98) % ABG Base Excess 0.2 (-2.0-3.0) mmol/L Los Test POSITIVE O2 Delivery Device HHF NASAL [place] O2 Liters/Min 40.00 LPM FiO2 80.00 Sodium 133 L (135-145) mmol/L Potassium 3.9 (3.5-5.0) mmol/L Chloride 97 L (101-111) mmol/L Carbon Dioxide 27 (21-32) mmol/L Anion Gap 9.0 (6-13) BUN 16 (6-20) mg/dL Creatinine 0.5 L (0.6-1.2) mg/dL Estimated GFR (MDRD) 160 (>89) Glucose 139 H (70-100) mg/dL Calcium 8.1 L (8.5-10.3) mg/dL Total Bilirubin 1.2 H (0.2-1.0) mg/dL AST 22 (10-42) IU/L ALT 27 (10-60) IU/L Alkaline Phosphatase 151 H (42-121) IU/L Troponin I < 0.04 (<0.49) ng/mL Total Protein 5.6 L (6.7-8.2) g/dL Albumin 2.8 L (3.2-5.5) g/dL Globulin 2.8 (2.1-4.2) g/dL Albumin/Globulin Ratio 1.0 (1.0-2.2) 08/06/18 Range/Units 05:54 WBC 5.9 (4.8-10.8) x10^3/uL RBC 3.37 L (4.70-6.10) 10^6/uL Hgb 10.6 L (14.0-18.0) g/dL Hct 30.1 L (42.0-52.0) % MCV 89.1 (80.0-94.0) fL MCH 31.4 H (27.0-31.0) pg MCHC 35.2 (32.0-36.0) g/dL RDW 16.6 H (12.0-15.0) % Plt Count 157 (130-450) 10^3/uL MPV 5.9 L (7.4-11.4) fL Neut # (Auto) 5.4 (1.5-6.6) 10^3/uL Lymph # (Auto) 0.1 L (1.5-3.5) 10^3/uL [place] # (Auto) 0.3 (0.0-1.0) 10^3/uL Eos # (Auto) 0.0 (0.0-0.7) 10^3/uL Baso # (Auto) 0.0 (0.0-0.1) 10^3/uL Absolute Nucleated RBC 0.01 x10^3/uL Nucleated RBC % 0.2 /100WBC Bld Gas Analysis Time Sample Site ABG pH (7.35-7.45) ABG pCO2 (34-45) mmHg ABG pO2 (80-100) mmHg ABG HCO3 (22.0-26.0) mmol/L ABG Total CO2 (21.0-29.0) MMOL/L ABG O2 Saturation (94-98) % ABG Base Excess (-2.0-3.0) mmol/L Los Test O2 Delivery Device O2 Liters/Min LPM FiO2 Sodium (135-145) mmol/L Potassium (3.5-5.0) mmol/L Chloride (101-111) mmol/L Carbon Dioxide (21-32) mmol/L Anion Gap (6-13) BUN (6-20) mg/dL Creatinine (0.6-1.2) mg/dL Estimated GFR (MDRD) (>89) Glucose (70-100) mg/dL Calcium (8.5-10.3) mg/dL Total Bilirubin (0.2-1.0) mg/dL AST (10-42) IU/L ALT (10-60) IU/L Alkaline Phosphatase (42-121) IU/L Troponin I (<0.49) ng/mL Total Protein (6.7-8.2) g/dL Albumin (3.2-5.5) g/dL Globulin (2.1-4.2) g/dL Albumin/Globulin Ratio (1.0-2.2) ABX Reporting Has patient been on IV antibiotics over the past 48 hours?: Yes Sepsis Event Note (H) - Evaluation Possible source of Sepsis: positive: Pulmonary - Sepsis Criteria Sepsis Criteria: Suspected or Documented, Respiratory: Increasing oxygen requirements Assessment/Plan - Problem List (1) Respiratory failure with hypoxia Impression: 08/06 today new ABG reveals PO2 65% with sats 93% on 80% FIO,PH 7.46. pt still feel SOB continue to use steroid and INH of Duoneb to treat with pt's severe COPD use antibiotics vancomycin and cefepim to treat his pneumonia closely monitor to see if pt need to use BIPAP, will discuss with Dr.Zina Horvath if pt need transfer to ICU. pt request full code pt repot he use 5-6 liter of O2 at home recently. today he feel more SOB. RT put pt on high Fio80%. ABG is ordered, which show pt had PO2 67.7, PH 7.487, 94% sats. continue treat with antibiotics continue monitor closely, supplement O2 (2) Pneumonia Impression: 08/06 use vancomycin and cefepim to treat pt consult with RT, closely monitor pt. 08/05 pt had normal WBC, mild dry cough, no fever/chill. CXR reveal pneumonia switch antibiotics to Cefepim continue supplement O2, consult with RT pt repot he took 2 liter of O2 daily base. not he has 93% with 5 liter of O2 now continue antibiotics continue breath treatment as needed (3) pulmonary HTN Conclusion/Plan: 08/05 pt also has slight HTN, add spironolacton recently CTA of chest reveals pt has pulmonary HTN, will continue supplement O2, vital monitor (4) severe emphysema/COPD (chronic obstructive pulmonary disease) Conclusion/Plan: 08/05 add solu-medrol 40mg Tid continue Duoneb, Albuterol duoneb, albuterol PRN supplement of O2 as needed (5) Encephalopathy Conclusion/Plan: improved, pt is more oriented (6) Esophageal cancer Conclusion/Plan: followup oncologist, pain control (7) Hypertension Conclusion/Plan: stable, continue home meds On amlodipine and metoprolol Resume once verified (8) GERD (gastroesophageal reflux disease) Conclusion/Plan: Protonix ordered
[2018-08-06] MEDS: VANCOMYCIN INJ 1 GM, VANCOMYCIN INJ 250 MG in SODIUM CHLORIDE 0.9% 250 ML IV SCH (16:50)
[2018-08-06] MEDS: LORazepam 0.5 MG TABLET PO PRN (19:05)
[2018-08-07] MEDS ORDERED: LIDOCAINE 2% URO-JET 5 ML SYRINGE UR SCH (00:24)
[2018-08-07] MEDS: IBUPROFEN 600 MG TABLET PO SCH ×2 (01:09→07:08)
[2018-08-07] MEDS: MORPHINE 2 MG/ML SYRINGE IVP PRN ×10 (01:09→22:08)
[2018-08-07] MEDS: SODIUM CHLORIDE FLUSH 0.9% 10 ML SYRINGE IVP SCH ×3 (01:10→16:54)
[2018-08-07] MEDS: LORazepam 0.5 MG TABLET PO PRN (01:34)
[2018-08-07] MEDS: SODIUM CHLORIDE FLUSH 0.9% 10 ML SYRINGE IVP PRN ×6 (03:07→16:00)
[2018-08-07] MEDS: VANCOMYCIN INJ 1 GM, VANCOMYCIN INJ 250 MG in SODIUM CHLORIDE 0.9% 250 ML IV SCH ×2 (04:13→16:15)
[2018-08-07] MEDS: LORazepam 2 MG/ML VIAL IVP PRN ×7 (04:51→23:19)
[2018-08-07 05:35] LABS: BASOPHILS % (AUTO) 0.1 %; HGB - HEMOGLOBIN 10.5 g/dL (14.0-18.0); LYMPHOCYTES # (AUTO) 0.1 10^3/uL (1.5-3.5); LYMPHOCYTES % (AUTO) 1.8 %; MEAN CORPUSCULAR HEMOGLOBIN 31.5 pg (27.0-31.0); MEAN CORPUSCULAR HGB CONC 35.4 g/dL (32.0-36.0); MEAN CORPUSCULAR VOLUME 89.1 fL (80.0-94.0); MEAN PLATELET VOLUME 6.2 fL (7.4-11.4); MONOCYTES # (AUTO) 0.4 10^3/uL (0.0-1.0); MONOCYTES % (AUTO) 6.4 %; NEUTROPHILS # (AUTO) 6.2 10^3/uL (1.5-6.6); NEUTROPHILS % (AUTO) 91.7 %; PLT - PLATELET COUNT 159 10^3/uL (130-450); RED BLOOD COUNT 3.34 10^6/uL (4.70-6.10); RED CELL DISTRIBUTION WIDTH 16.7 % (12.0-15.0); WHITE BLOOD COUNT 6.8 x10^3/uL (4.8-10.8)
[2018-08-07 05:46] LABS: ALBUMIN 2.8 g/dL (3.2-5.5); BILIRUBIN,TOTAL 1.2 mg/dL (0.2-1.0); CALCIUM 8.1 mg/dL (8.5-10.3); CREATININE 0.5 mg/dL (0.6-1.2); TOTAL PROTEIN 5.7 g/dL (6.7-8.2)
[2018-08-07] MEDS: methylPREDNISolone SUCCINATE 40 MG/ML VIAL IVP SCH ×3 (05:57→21:35)
[2018-08-07] MEDS: CEFEPIME 1 GM in SODIUM CHLORIDE 0.9% MINIBAG 100 ML IV SCH (05:57)
[2018-08-07 06:42] LABS: ABG PH 7.47 (7.35-7.45)
[2018-08-07 06:43] LABS: ABG BASE EXCESS 2.4 mmol/L (-2.0-3.0); ABG OXYGEN SATURATION 89 % (94-98); ABG PCO2 37 mmHg (34-45); ABG TCO2 27.1 MMOL/L (21.0-29.0); ALLEN TEST POSITIVE
[2018-08-07 06:44] LABS: ABG PO2 54 mmHg (80-100)
[2018-08-07] MEDS: PANTOPRAZOLE 40 MG TABLET PO SCH (07:08)
[2018-08-07] MEDS: IPRATROPIUM/ALBUTEROL 3 ML NEB INH SCH ×4 (07:36→19:38)
--- NOTE | 2018-08-07 08:09 | XRAY Report ---
Reason: worsening dyspnea and hypoxia Procedure Date: 08/07/2018 Accession Number: [id number] / [id number] Procedure: XR - Chest 1 View X-Ray CPT Code: 29426 FULL RESULT: EXAM: CHEST RADIOGRAPHY EXAM DATE: 08/07/2018 07:14 AM. CLINICAL HISTORY: Worsening dyspnea and hypoxia. COMPARISON: CHEST 1 VIEW 08/03/2018 8:23 PM CHEST W/ 08/05/2018 9:06 AM. TECHNIQUE: 1 view. FINDINGS: Lungs/Pleura: Diffuse increased interstitial markings throughout both lungs redemonstrated and increased from the prior chest radiograph. Mediastinum: Within exam limitations, the cardiomediastinal contour is normal. Other: Right sided Port-A-Cath redemonstrated. IMPRESSION: Increasing interstitial opacities scattered throughout both lungs. RADIA
--- NOTE | 2018-08-07 08:14 | PROVIDER PROGRESS NOTE ---
Operator Command Support Systems Note - Operator Command Support Systems Note Operator [employer] Support Systems Note: Shortly after shift change about 23:30pm on 08/06/18, the patient attempted to sit up to use the urinal while on the hi kyaw and his O2 Saturation significantly dropped in to the 70's. Attempts at correct it only improved his Oxygenation to 85%. He was still tachypneic and using accessory muscle for respiration. As a result he was transferred to the ICU and placed on bipap around 00:30 on 08/07/18. He seemed to be more comfortable on the bipap. With settings of I/E of 12/6, R15, FIO2 80%. However repeat ABG later in the morning showed a pO2 of 54. The patient is intermittently confused corresponding with the hypoxic episodes I contacted the patient's daughter to update he on what happened overnight. I pointed out that there was an increased likelihood his respiratory status would further decline through the course of the day. If that happened, the next option/ step would be intubation. I expressed my concern that in light of all his co-morbidities, he will be difficult to wean off a vent. He would likely require a trache and boilers inspector care facility. I broached the topic/ question of considering palliative care. His daughter would like the family there when the conversation takes place and said they will be there later in the morning.
[2018-08-07] MEDS ORDERED: D5NS W/20 MEQ KCL 1,000 ML IV SCH (09:00)
[2018-08-07] MEDS: KETOROLAC 15 MG/ML VIAL IVP SCH ×3 (09:15→18:15)
[2018-08-07] MEDS: diltiaZEM INJ 5 MG/ML VIAL IVP SCH ×2 (09:19→16:52)
[2018-08-07] MEDS: FAMOTIDINE 20 MG/2 ML VIAL IVP SCH ×2 (09:20→21:38)
[2018-08-07] MEDS: AZITHROMYCIN INJ 500 MG in SODIUM CHLORIDE 0.9% 250 ML IV SCH (09:25)
[2018-08-07] MEDS: ENOXAPARIN 40 MG/0.4 ML SYRINGE SUBQ SCH (09:35)
[2018-08-07] MEDS ORDERED: PIPERACILLIN/TAZOBACTAM 3.375 GM in SODIUM CHLORIDE 0.9% MINIBAG 100 ML IV SCH (10:00)
[2018-08-07] MEDS: PIPERACILLIN/TAZOBACTAM 3.375 GM in SODIUM CHLORIDE 0.9% MINIBAG 100 ML IV SCH ×2 (12:05→20:23)
--- NOTE | 2018-08-07 16:21 | PROVIDER PROGRESS NOTE ---
Assessment/Plan - Problem List (1) Respiratory failure with hypoxia Qualifiers: Chronicity: acute on chronic Qualified Code(s): J96.21 - Acute and chronic respiratory failure with hypoxia Assessment/Plan: He worsened overnight and was moved to the ICU, started on BIPAP and an ABG showed adequate pH and O2 sat of 89%. He requires Ativan prn and Morphine prn, to keep the mask on and also to treat air hunger. I have updated the daughter and son-in-law and their daughter, a son from [place] and 2 friends that he lives with. (2) Metabolic encephalopathy Assessment/Plan: There have been several episodes of obvious confusion when he has documented hypoxemia. We will continue treating the underlying condition of pneumonia and his COPD, with a goal to keep saturations >88%. (3) Pneumonia Qualifiers: Pneumonia type: due to unspecified organism Laterality: bilateral Lung location: unspecified part of lung Qualified Code(s): J18.9 - Pneumonia, unspecified organism Assessment/Plan: This morning's chest x-ray reveals worsening pneumonia bilaterally. This was reviewed with all the family and friends present. The sputum has an abnormal Gram stain, the culture results are still pending. His antibiotics will be broadened to cover atypical bacteria, anaerobes, gram positives and gram negatives: This will include IV Vanco, IV PIP/Tazo and IV Zithromax. (4) COPD with exacerbation Assessment/Plan: His IV steroids will be increased to 80 mg of Solumedrol IV 3 times daily. Continue with his scheduled and PRN nebulizers. (5) Anemia Qualifiers: Anemia type: iron deficiency Assessment/Plan: His lab values were reviewed. He has iron deficiency anemia. He was to be on iron 3 times a day orally. I will give IV iron injection today, determine the next step tomorrow. (6) Esophageal cancer Qualifiers: Malignant neoplasm of esophagus location: unspecified location Qualified Co de(s): C15.9 - Malignant neoplasm of esophagus, unspecified Assessment/Plan: Patient was to have more staging and mapping to determine radiation plan. Family was told that there is a new large nodule on his chest imaging. I will request records from his prior stay at [facility], PCP notes regarding this cancer, radiation oncology notes and oncology notes. - Current Meds Current Meds: Current Medications Generic Name Dose Route Start Last Admin Trade Name Freq PRN Reason Stop Dose Admin Albuterol/Ipratropium 3 ml 08/04/18 02:56 08/05/18 15:25 Duoneb INH 3 ml Q4HR PRN Administration Wheezing Albuterol/Ipratropium 3 ml 08/05/18 18:00 08/07/18 16:12 Duoneb INH 3 ml RTQID MONICA Administration Diltiazem HCl 2.5 mg 08/07/18 09:00 08/07/18 09:19 Cardizem Inj IVP 2.5 mg Q8H MONICA Administration Enoxaparin Sodium 40 mg 08/04/18 09:00 08/07/18 09:35 Lovenox SUBQ 40 mg DAILY MONICA Administration Famotidine 20 mg 08/07/18 09:00 08/07/18 09:20 Pepcid IVP 20 mg BID MONICA Administration Heparin Sodium (Beef Lung) 30 - 50 unit 08/04/18 22:53 08/06/18 05:51 IVP 50 unit PRN PRN Administration Port Protocol (<24 hours) Azithromycin 500 mg/ Sodium 250 mls @ 250 mls/hr 08/07/18 09:00 08/07/18 10:45 Chloride IV Infused DAILY MONICA Infusion Potassium Chloride/Dextrose/Sod Cl 1,000 mls @ 40 mls/hr 08/07/18 09:00 08/07/18 12:05 IV 0 mls/hr .Q25H MONICA Infusion Piperacillin Sod/Tazobactam 100 mls @ 25 mls/hr 08/07/18 12:00 08/07/18 16:15 Sod 3.375 gm/ Sodium Chloride IV Infused Q8H MONICA Infusion Vancomycin HCl 1 gm/ 250 mls @ 167 mls/hr 08/07/18 16:00 08/07/18 16:15 Vancomycin HCl 250 mg/ Sodium IV 167 mls/hr Chloride Q12H MONICA Administration Ketorolac Tromethamine 15 mg 08/07/18 08:00 08/07/18 12:07 Toradol Inj (15mg) IVP 08/12/18 07:59 15 mg Q6HR MONICA Administration Lorazepam 1 mg 08/07/18 08:29 08/07/18 14:00 Ativan Inj (Vial) IVP 1 mg Q3H PRN Administration Anxiety Methylprednisolone 80 mg 08/07/18 14:00 08/07/18 13:58 Solu-Medrol (40mg Vial) IVP 80 mg TID MONICA Administration Morphine Sulfate 2 mg 08/07/18 00:24 08/07/18 16:00 Morphine IVP 2 mg Q2H PRN Administration PAIN Sodium Chloride 10 ml 08/03/18 22:21 08/07/18 16:00 Normal Saline Flush 0.9% IVP 10 ml PRN PRN Administration NEEDED PER PROVIDER ORDERS Sodium Chloride 10 ml 08/04/18 01:00 08/07/18 09:21 Normal Saline Flush 0.9% IVP 10 ml 0100,0900,1700 MONICA Administration - Lab Result Fish Bone Diagrams: 08/07/18 05:16 08/07/18 05:16 - Additional Planning My Orders: My Active Orders 08/07/18 08:00 Ketorolac Inj (15Mg) [Toradol Inj (15Mg)] 15 mg IVP Q6HR 08/07/18 08:29 DIET [NPO] [DIET] LORazepam INJ [Ativan Inj (Vial)] 1 mg IVP Q3H PRN 08/07/18 09:00 Azithromycin Inj [Zithromax Inj] 500 mg Sodium Chloride 0.9% [Normal Saline 0.9%] 250 ml IV DAILY D5ns W/20 Meq KCl 1,000 ml IV 40 mls/hr Famotidine [Pepcid] 20 mg IVP BID diltiaZEM INJ [Cardizem Inj] 2.5 mg IVP Q8H 08/07/18 11:00 Acetaminophen 1,000 mg/100 ml [Ofirmev] 100 ml IV Q6HR 08/07/18 12:00 Piperacillin/Tazobactam [Zosyn] 3.375 gm Sodium Chloride 0.9% Minibag [Normal Saline 0.9% Minibag] 100 ml IV Q8H 08/07/18 14:00 methylPREDNISolone SUCCINATE [SOLU-Medrol (40MG VIAL)] 80 mg IVP TID 08/08/18 05:00 ABG - ARTERIAL BLOOD GAS [BG] DAILYLAB 08/08/18 09:00 Aspirin Supp 300 mg AK DAILY 08/09/18 05:00 ABG - ARTERIAL BLOOD GAS [BG] DAILYLAB 08/10/18 05:00 ABG - ARTERIAL BLOOD GAS [BG] DAILYLAB Objective Vital Signs: Vital Signs - 24 hr 08/06/18 08/06/18 08/06/18 19:50 20:00 23:10 Temperature Heart Rate 92 Heart Rate [ 90 88 Brachial] Heart Rate [ Monitoring electrodes] Respiratory 20 16 30 H Rate Blood Pressure Blood Pressure 142/77 H [Right Brachial artery] O2 Saturation 88 L 62 L 08/06/18 08/06/18 08/07/18 23:15 23:45 00:30 Temperature Heart Rate 97 Heart Rate [ 89 80 Brachial] Heart Rate [ Monitoring electrodes] Respiratory 28 H 30 H Rate Blood Pressure Blood Pressure [Right Brachial artery] O2 Saturation 83 L 86 L 08/07/18 08/07/18 08/07/18 01:00 01:35 02:00 Temperature 36.7 C Heart Rate 94 Heart Rate [ 94 90 Brachial] Heart Rate [ Monitoring electrodes] Respiratory 22 19 Rate Blood Pressure Blood Pressure 186/94 H 163/87 H [Right Brachial artery] O2 Saturation 92 93 08/07/18 08/07/18 08/07/18 03:00 03:35 04:00 Temperature Heart Rate 82 Heart Rate [ 86 81 Brachial] Heart Rate [ Monitoring electrodes] Respiratory 18 19 Rate Blood Pressure Blood Pressure 153/84 H 142/83 H [Right Brachial artery] O2 Saturation 92 92 08/07/18 08/07/18 08/07/18 05:00 05:35 06:00 Temperature Heart Rate 83 Heart Rate [ 82 80 Brachial] Heart Rate [ Monitoring electrodes] Respiratory 19 18 Rate Blood Pressure Blood Pressure 139/82 H 145/88 H [Right Brachial artery] O2 Saturation 91 L 90 L 08/07/18 08/07/18 08/07/18 07:00 07:37 08:11 Temperature Heart Rate 84 Heart Rate [ Brachial] Heart Rate [ 80 110 H Monitoring electrodes] Respiratory 19 20 20 Rate Blood Pressure Blood Pressure 145/89 H 181/102 H [Right Brachial artery] O2 Saturation 95 83 L 08/07/18 08/07/18 08/07/18 09:00 09:19 10:00 Temperature 36.2 C L Heart Rate Heart Rate [ Brachial] Heart Rate [ 80 80 Monitoring electrodes] Respiratory 20 20 Rate Blood Pressure 149/81 H Blood Pressure 149/81 H 138/84 H [Right Brachial artery] O2 Saturation 90 L 82 L 08/07/18 08/07/18 08/07/18 10:12 11:00 12:00 Temperature Heart Rate 78 78 Heart Rate [ Brachial] Heart Rate [ 83 80 Monitoring electrodes] Respiratory 20 20 Rate Blood Pressure Blood Pressure 136/83 H 138/90 H [Right Brachial artery] O2 Saturation 95 94 08/07/18 08/07/18 08/07/18 13:00 14:00 14:12 Temperature 36.6 C Heart Rate 81 Heart Rate [ Brachial] Heart Rate [ 84 81 Monitoring electrodes] Respiratory 20 14 Rate Blood Pressure Blood Pressure 133/84 H 120/64 [Right Brachial artery] O2 Saturation 92 94 08/07/18 08/07/18 08/07/18 15:00 16:00 16:12 Temperature Heart Rate 77 Heart Rate [ Brachial] Heart Rate [ 80 80 Monitoring electrodes] Respiratory 17 19 Rate Blood Pressure Blood Pressure 124/79 137/90 H [Right Brachial artery] O2 Saturation 93 96 Oxygen O2 Source BIPAP Oxygen Flow Rate 4 I&O (Last 24 Hrs): Intake and Output Totals x24h 08/05/18 08/06/18 08/07/18 23:59 23:59 23:59 Intake Total 1750 1500 890 Output Total 100 1625 1191 Balance 6758 -526 -301 - Results Results: Laboratory Results WBC 6.8 x10^3/uL (4.8-10.8) 08/07/18 05:16 RBC 3.34 10^6/uL (4.70-6.10) L 08/07/18 05:16 Hgb 10.5 g/dL (14.0-18.0) L 08/07/18 05:16 Hct 29.7 % (42.0-52.0) L 08/07/18 05:16 MCV 89.1 fL (80.0-94.0) 08/07/18 05:16 MCH 31.5 pg (27.0-31.0) H 08/07/18 05:16 MCHC 35.4 g/dL (32.0-36.0) 08/07/18 05:16 RDW 16.7 % (12.0-15.0) H 08/07/18 05:16 Plt Count 159 10^3/uL (130-450) 08/07/18 05:16 MPV 6.2 fL (7.4-11.4) L 08/07/18 05:16 Reticulocyte % (Auto) 3.90 % (0.5-2.3) H 08/04/18 05:30 Neut # (Auto) 6.2 10^3/uL (1.5-6.6) 08/07/18 05:16 Lymph # (Auto) 0.1 10^3/uL (1.5-3.5) L 08/07/18 05:16 [place] # (Auto) 0.4 10^3/uL (0.0-1.0) 08/07/18 05:16 Eos # (Auto) 0.0 10^3/uL (0.0-0.7) 08/07/18 05:16 Baso # (Auto) 0.0 10^3/uL (0.0-0.1) 08/07/18 05:16 Absolute Nucleated RBC 0.01 x10^3/uL 08/07/18 05:16 Nucleated RBC % 0.2 /100WBC 08/07/18 05:16 Absolute Retic 0.133 10^6/uL (0.020-0.110) H 08/04/18 05:30 Bld Gas Analysis Time 0616 08/07/18 06:10 Sample Site RIGHT RADIAL 08/07/18 06:10 ABG pH 7.47 (7.35-7.45) H 08/07/18 06:10 ABG pCO2 37 mmHg (34-45) 08/07/18 06:10 ABG pO2 54 mmHg (80-100) L* 08/07/18 06:10 ABG HCO3 26.0 mmol/L (22.0-26.0) 08/07/18 06:10 ABG Total CO2 27.1 MMOL/L (21.0-29.0) 08/07/18 06:10 ABG O2 Saturation 89 % (94-98) L 08/07/18 06:10 ABG Oximetry Spot Check 94 % 08/05/18 11:55 ABG Base Excess 2.4 mmol/L (-2.0-3.0) 08/07/18 06:10 Los Test POSITIVE 08/07/18 06:10 Respiration Rate 15 b/min 08/07/18 06:10 O2 Delivery Device BiPAP 08/07/18 06:10 O2 Liters/Min 40.00 LPM 08/06/18 12:09 Vent Mode SYNCHRONOUS/TIMES 08/07/18 06:10 FiO2 80.00 08/07/18 06:10 PEEP 6 cmH2O 08/07/18 06:10 Pressure Support Vent 6 cmH2O 08/07/18 06:10 EPAP 6 cmH2O 08/07/18 06:10 IPAP 12 cmH2O 08/07/18 06:10 Sodium 136 mmol/L (135-145) 08/07/18 05:16 Potassium 3.6 mmol/L (3.5-5.0) 08/07/18 05:16 Chloride 100 mmol/L (101-111) L 08/07/18 05:16 Carbon Dioxide 28 mmol/L (21-32) 08/07/18 05:16 Anion Gap 8.0 (6-13) 08/07/18 05:16 BUN 18 mg/dL (6-20) 08/07/18 05:16 Creatinine 0.5 mg/dL (0.6-1.2) L 08/07/18 05:16 Estimated GFR (MDRD) 160 (>89) 08/07/18 05:16 Glucose 151 mg/dL (70-100) H 08/07/18 05:16 Lactic Acid 1.4 mmol/L (0.5-2.2) 08/03/18 20:03 Calcium 8.1 mg/dL (8.5-10.3) L 08/07/18 05:16 Iron 28 ug/dL (45-182) L 08/04/18 05:30 TIBC 178 ug/dL (250-450) L 08/04/18 05:30 % Saturation 16 % (20-50) L 08/04/18 05:30 Transferrin 127 mg/dL (180-329) L 08/04/18 05:30 Ferritin 542.0 ng/mL (23.9-336.2) H 08/04/18 05:30 Total Bilirubin 1.2 mg/dL (0.2-1.0) H 08/07/18 05:16 AST 39 IU/L (10-42) 08/07/18 05:16 ALT 52 IU/L (10-60) 08/07/18 05:16 Alkaline Phosphatase 195 IU/L (42-121) H 08/07/18 05:16 Lactate Dehydrogenase 210 IU/L (91-225) 08/04/18 05:30 Troponin I < 0.04 ng/mL (<0.49) 08/06/18 14:23 B-Natriuretic Peptide 147 pg/mL (5-100) H 08/03/18 20:03 Total Protein 5.7 g/dL (6.7-8.2) L 08/07/18 05:16 Albumin 2.8 g/dL (3.2-5.5) L 08/07/18 05:16 Globulin 2.9 g/dL (2.1-4.2) 08/07/18 05:16 Albumin/Globulin Ratio 1.0 (1.0-2.2) 08/07/18 05:16 Lipase 21 U/L (22-51) L 08/03/18 20:03 Vitamin B12 502 pg/mL (180-914) 08/04/18 05:30 Urine Color YELLOW 08/03/18 21:44 Urine Clarity CLEAR (CLEAR) 08/03/18 21:44 Urine pH 6.0 PH (5.0-7.5) 08/03/18 21:44 Ur Specific [place] 1.010 (1.002-1.030) 08/03/18 21:44 Urine Protein TRACE mg/dL (NEGATIVE) 08/03/18 21:44 Urine Glucose (UA) NEGATIVE mg/dL (NEGATIVE) 08/03/18 21:44 Urine Ketones >=80 mg/dL (NEGATIVE) H 08/03/18 21:44 Urine Occult Blood TRACE-INTA (NEGATIVE) 08/03/18 21:44 Urine Nitrite NEGATIVE (NEGATIVE) 08/03/18 21:44 Urine Bilirubin NEGATIVE (NEGATIVE) 08/03/18 21:44 Urine Urobilinogen 4 E.U./dL (NORMAL) H 08/03/18 21:44 Ur Leukocyte Esterase NEGATIVE (NEGATIVE) 08/03/18 21:44 Ur Microscopic Review NOT INDICATED 08/03/18 21:44 Urine Culture Comments NOT INDICATED 08/03/18 21:44 Nasal Screen MRSA (PCR) NEGATIVE (NEGATIVE) 08/07/18 01:28 Sepsis Event Note (H) - Evaluation Possible source of Sepsis: positive: Pulmonary - Sepsis Criteria Sepsis Criteria: Suspected or Documented, Respiratory: Increasing oxygen requirements
--- NOTE | 2018-08-07 17:19 | ADVANCE CARE PLANNING NOTE ---
Advance Care Planning - Date/Time Date: 08/07/18 Time: 09:00 (Another meeting at 1530) - Purpose of encounter Text: To determine his wishes, if communicated to the family, and their wishes as decision makers for him, regarding aggressiveness of care, ventilator use wishes and Code Blue choice. - Parties in attendance Parties in attendance: I spoke with the daughter and son-in-law and their daughter and 2 friends that he lives with. Later< i reiterated the discussion with the same people plus a son who arrived from [place]. - Decisional capacity Decisional capacity of: He is currently sedated and is not able to comprehend or make any decisions. The friend where he lives, brought in Advanced Directives, that apparently assign the daughter as DPOA, and next in line is the son. - Subjective/Patient's story Subjective/Patient's story: Last year he developed trouble and painful swallowing, had an upper EGD that showed the tumor, he has subsequently been followed at [facility] with oncologist, radiation oncologist's and a real estate consultant at [facility]. Patient lives alone but has family visit him daily. He has been on oxygen at 2 L but purchased a sat monitor and despite being told to increase this to 5 L recently, he has been trying to do without it, by monitoring his oxygen saturations, according to the son. The son also describes that the patient "loves to talk". Sometimes the patient is on the phone with his son for 2 or 3 hours at a time, and every day. Yesterday, when our staff were in his room, he would desaturate during talking and the respiratory therapist even told him to "talk less, breathe more". The patient has verbalized that he wants to have CPR and have full resuscitat ion, this was repeated by both the son and the daughter. There was never discussion about specifics like whether or not the patient wanted to ventilator. - Objective/Medical story Objective/Medical Story: He was Dx with esophageal CA in September 2017 and he has had one course of chemo and radiation also. He was told that his prognosis was 1 to 1/2 years, in September 2017. He was on Keytruda, and developed severe side effects and this was discontinued, he was then on dexamethasone. He is an ex-smoker of 1-3 PPD, quit 26 years ago. He has a history of COPD, was on 2 L of oxygen at home, just went to see his real estate consultant 5 days ago, described being short of breath walking across the room in his house and was told that he should increase the oxygen setting to 5 L with exertion. Patient had just completed 6 weeks of tapering down his prednisone to nothing, the last dose was 5 mg a day. The patient was admitted 3 days ago with pneumonia, brown sputum, hypoxia, has needed escalating doses of supplemental oxygen and last night had severe desaturations with air hunger, was moved to the ICU for BiPAP use. Each day here his IV antibiotics have been broadened because of the pneumonia. This morning his chest x-ray shows even further worsening of opacities bilaterally, and underlying COPD. He needs sedation in order to tolerate the BiPAP and even with movement, or taking off the mask for just seconds, causes him to desaturate. All of his p.o. meds and diet have therefore been altered, to IV dosing including a low dose of IV D5 NS with K, for calories. I discussed possibility of needing to be intubated, and if this looks like it would be long-term he would need a trach. He could potentially be extubated however. I discussed the complications of positive pressure ventilation including rupture of blebs and developing pneumothorax which would need emergency chest tube placement. I asked the daughter and son to think about what should be done if he would need a ventilator and at what point they would like us to offer palliative care or even comfort measures. There was no answer to me from them yet. - Goals of Care Goals of care determinations: The Advanced Directives will be scanned into [employer]. He will remain a full code, as he wants resuscitation and CPR. The family will make a decision if a ventilator and intubation is needed and will consider comfort care, if it is recommended in the future. - Plan Plan: As above in Goals of care - Code Status Code Status: Attempt Resuscitation - Time Spent on Advance Care Planning Time spent on advance care plannin min
[2018-08-07] MEDS: ACETAMINOPHEN 1,000 MG/100 ML 100 ML IV PRN (20:27)
[2018-08-08] MEDS: MORPHINE 2 MG/ML SYRINGE IVP PRN ×12 (00:41→22:35)
[2018-08-08] MEDS: diltiaZEM INJ 5 MG/ML VIAL IVP SCH ×3 (00:59→17:13)
[2018-08-08] MEDS: SODIUM CHLORIDE FLUSH 0.9% 10 ML SYRINGE IVP SCH ×4 (01:34→19:39)
[2018-08-08] MEDS: LORazepam 2 MG/ML VIAL IVP PRN ×8 (02:46→23:01)
[2018-08-08] MEDS: VANCOMYCIN INJ 1 GM, VANCOMYCIN INJ 250 MG in SODIUM CHLORIDE 0.9% 250 ML IV SCH (03:30)
[2018-08-08] MEDS: SODIUM CHLORIDE FLUSH 0.9% 10 ML SYRINGE IVP PRN ×7 (03:30→23:01)
[2018-08-08 03:46] LABS: BASOPHILS % (AUTO) 0.2 %; HGB - HEMOGLOBIN 11.1 g/dL (14.0-18.0); LYMPHOCYTES # (AUTO) 0.1 10^3/uL (1.5-3.5); LYMPHOCYTES % (AUTO) 1.3 %; MEAN CORPUSCULAR HEMOGLOBIN 31.9 pg (27.0-31.0); MEAN CORPUSCULAR HGB CONC 35.5 g/dL (32.0-36.0); MEAN CORPUSCULAR VOLUME 89.8 fL (80.0-94.0); MEAN PLATELET VOLUME 6.2 fL (7.4-11.4); MONOCYTES # (AUTO) 0.3 10^3/uL (0.0-1.0); NEUTROPHILS # (AUTO) 5.9 10^3/uL (1.5-6.6); NEUTROPHILS % (AUTO) 93.5 %; PLT - PLATELET COUNT 155 10^3/uL (130-450); RED BLOOD COUNT 3.47 10^6/uL (4.70-6.10); RED CELL DISTRIBUTION WIDTH 16.6 % (12.0-15.0); WHITE BLOOD COUNT 6.3 x10^3/uL (4.8-10.8)
[2018-08-08 03:56] LABS: ALBUMIN 2.9 g/dL (3.2-5.5); ALBUMIN/GLOBULIN RATIO 1.1 (1.0-2.2); BILIRUBIN,TOTAL 1.2 mg/dL (0.2-1.0); CALCIUM 8.1 mg/dL (8.5-10.3); CREATININE 0.6 mg/dL (0.6-1.2); TOTAL PROTEIN 5.6 g/dL (6.7-8.2)
[2018-08-08] MEDS: PIPERACILLIN/TAZOBACTAM 3.375 GM in SODIUM CHLORIDE 0.9% MINIBAG 100 ML IV SCH ×3 (05:16→22:35)
[2018-08-08] MEDS: KETOROLAC 15 MG/ML VIAL IVP SCH ×5 (05:44→23:47)
[2018-08-08] MEDS: methylPREDNISolone SUCCINATE 40 MG/ML VIAL IVP SCH ×3 (05:48→21:50)
[2018-08-08 06:02] LABS: ABG BASE EXCESS 1.5 mmol/L (-2.0-3.0); ABG HCO3 24.9 mmol/L (22.0-26.0); ABG OXYGEN SATURATION 88 % (94-98); ABG PCO2 35 mmHg (34-45); ABG PH 7.47 (7.35-7.45); ALLEN TEST POSITIVE
[2018-08-08 06:03] LABS: ABG PO2 52 mmHg (80-100)
[2018-08-08] MEDS: IPRATROPIUM/ALBUTEROL 3 ML NEB INH SCH ×4 (07:27→20:03)
[2018-08-08] MEDS: ENOXAPARIN 40 MG/0.4 ML SYRINGE SUBQ SCH (09:33)
[2018-08-08] MEDS: FAMOTIDINE 20 MG/2 ML VIAL IVP SCH ×2 (09:33→20:37)
[2018-08-08] MEDS: AZITHROMYCIN INJ 500 MG in SODIUM CHLORIDE 0.9% 250 ML IV SCH (09:33)
[2018-08-08] MEDS: ASPIRIN 300 MG SUPP PR SCH (09:34)
[2018-08-08] MEDS ORDERED: MORPHINE 2 MG/ML SYRINGE ONE (09:55)
[2018-08-08] MEDS ORDERED: MORPHINE 2 MG/ML SYRINGE IVP ONE (09:55)
[2018-08-08] MEDS ORDERED: LORazepam 2 MG/ML VIAL ONE (09:56)
[2018-08-08] MEDS ORDERED: LORazepam 2 MG/ML VIAL IVP ONE (09:56)
[2018-08-08] MEDS ORDERED: LORazepam 2 MG/ML VIAL IVP SCH (10:04)
[2018-08-08] MEDS ORDERED: MORPHINE 2 MG/ML SYRINGE IVP SCH (10:05)
[2018-08-08] MEDS ORDERED: SODIUM CHLORIDE FLUSH 0.9% 10 ML SYRINGE ONE (10:13)
[2018-08-08 11:17] LABS: ABG PCO2 35 mmHg (34-45); ABG PH 7.47 (7.35-7.45)
[2018-08-08 11:18] LABS: ABG BASE EXCESS 1.5 mmol/L (-2.0-3.0); ABG HCO3 24.8 mmol/L (22.0-26.0); ABG OXYGEN SATURATION 90 % (94-98); ABG TCO2 25.8 MMOL/L (21.0-29.0); ALLEN TEST POSITIVE
[2018-08-08 11:20] LABS: ABG PO2 55 mmHg (80-100)
--- NOTE | 2018-08-08 11:34 | XRAY Report ---
Reason: Worsening desaturations,eval for CHF w/ pneumonia Procedure Date: 08/08/2018 Accession Number: [id number] / [id number] Procedure: XR - Chest 1 View X-Ray CPT Code: 89240 FULL RESULT: EXAM: CHEST RADIOGRAPHY EXAM DATE: 08/08/2018 08:49 AM. CLINICAL HISTORY: Worsening desaturations, eval for CHF w/ pneumonia. COMPARISON: 08/07/2018 and 08/03/2018 chest x-ray and 08/05/[address] TECHNIQUE: 1 view. FINDINGS: Lungs/Pleura: Patchy bilateral lung opacities superimposed on a background of chronic emphysematous change are similar in appearance to 08/07/2018. No pneumothorax or pleural effusion. Mediastinum: Heart size is accentuated by the AP portable supine technique. Other: Right Port-A-Cath in place. Mildly elevated right diaphragm. IMPRESSION: Stable abnormal chest x-ray with bilateral patchy bilateral lung opacities likely pneumonia superimposed on a background of chronic emphysematous change. RADIA
[2018-08-08] MEDS: TMP IV SCH ×3 (12:00→23:47)
[2018-08-08] MEDS: SMX IV SCH ×3 (12:00→23:47)
[2018-08-08] MEDS: DEXTROSE 5% IV SCH ×3 (12:00→23:47)
[2018-08-08] MEDS ORDERED: LORazepam 2 MG/ML VIAL IVP PRN (12:16)
[2018-08-08] MEDS: VANCOMYCIN INJ 1 GM, VANCOMYCIN INJ 500 MG in SODIUM CHLORIDE 0.9% 500 ML IV SCH (13:59)
[2018-08-08] MEDS ORDERED: FAT EMULSION 20% 250 ML IV SCH (14:00)
[2018-08-08] MEDS ORDERED: PPN (CLINIMIX E 4.25/5) 2,000 ML with MULTIVITAMIN 10 ML, TRACE ELEMENTS V CONC 1 ML IV SCH ×3 (14:00)
--- NOTE | 2018-08-08 16:51 | PROVIDER PROGRESS NOTE ---
Assessment/Plan - Problem List (1) Respiratory failure with hypoxia Qualifiers: Chronicity: acute on chronic Qualified Code(s): J96.21 - Acute and chronic respiratory failure with hypoxia Assessment/Plan: The patient was able to maintain O2 sats of 88-97% on his BIPAP settings overnight. The son slept in the room and reported that he had the same pattern of desaturation to as low as 40%, when he moved in bed or became anxious. he is on alternating doses of Ativan iv for anxiety and Morphine iv for dyspnea or pain. This a.m. the CXR has the same appearance as yesterday, when he had worsening and multilobar opacities. This a.m. the ABG showed slightly more respiratory alkalosis; he is trying to maintain adequate oxygenation and he his working hard. I again discussed the imminent need for ET intubation and risk of blebs rupturing, needing a chest tube. The daughter and son said they had red their father's [facility] paperwork, and told me that a ventilator should be used if needed. I alerted Anesthesia and General surgery (regarding a chest tube), to be ready for intubation. He will be started on tpn today, for calories and nutrition, since ng feeds may cause inadequate BIPAP mask contact and oxygen desaturations. If she is in tubated, ng feedings would be ordered. All his meds were changed to iv yesterday, ASA is CO. I called his Damage Assessor, Gordon Cosme MD at [facility], in [facility] . I reviewed the entire case, including the ABGs and the CXR results. Dr Salcedo" said he didn't recall the patient having blebs, and therefore to cover for Pneumocystis carinii, since the patient had just been on steroids for 6-8 weeks. In addition, Dr Salcedo" agreed th at the patient may need intubation, stabilization, then transfer to the Pulmonary service/ICU at [facility]. (2) Pneumonia Qualifiers: Pneumonia type: due to unspecified organism Laterality: bilateral Lung location: unspecified part of lung Qualified Code(s): J18.9 - Pneumonia, unspecified organism Assessment/Plan: I called his Damage Assessor, Gordon Cosme MD at [facility], in [facility] . I reviewed the entire case, including the ABGs and the CXR results. Dr Salcedo" said he didn't recall the patient having blebs, and therefore to cover for Pneumocystis carinii, since the patient had just been on steroids for 6-8 weeks. In addition, Dr Salcedo" agreed that the patient may need intubation, stabilization, then transfer to the Pulmonary service/ICU at [facility]. He is on iv Zithromax, iv Vanco and iv Pip/Tazo. I will add iv TMP/SMX at 20 mg/kg/day, the dose advised by [facility] for Pneumocystis pneumonia. It will be given using 400 mg of the TMP portion q6h. (The Pharmacy here has enough for 2 doses, but will obtain 3 more doses from [facility], which will allow dosing here until 6 pm tomorrow 08/09/18). [facility] need [facility] if there are no more local doses of TMP obtainable, or if he continues to worsen. (3) Metabolic encephalopathy Assessment/Plan: He was less confused today, followed commands from r=the son, and recognized him, despite getting gentle Ativan and Morphine doses. He also had documented confusion, earlier this admission, when he desaturated. Continue aggressive medical management. (4) COPD with exacerbation Assessment/Plan: In my discussion with his Damage Assessor, Dr Gordon Arriaza, he told me that the patient had PFTs this year showing minimal improvement to inhalers or steroids, but agreed that these should be tried currently. (5) Anemia Qualifiers: Anemia type: iron deficiency Assessment/Plan: Iv Iron infusions and/or blood transfusions may be needed, given his hypoxia. Follow CBC daily. (6) Esophageal cancer Qualifiers: Malignant neoplasm of esophagus location: unspecified location Qualified Code(s): C15.9 - Malignant neoplasm of esophagus, unspecified Assessment/Plan: Stage 4 cancer with mets was Dx in 09/27 and the family told me he was given a 1 - 1.5 year prognosis. The chemo and radiation did help shrink the esophageal mass and he is able to eat a normal diet. The patient stated multiple times recently to the family that he wished aggressive medical management, including CPR, intubation and transfers to higher level of care if needed. (7) Elevated LFTs Assessment/Plan: This is new today, possibly passive congestion from new iv fluids started at a slow rate yesterday. The iv fluids will be stopped as the tpn is started today. Follow CMP daily. - Current Meds Current Meds: Current Medications Generic Name Dose Route Start Last Admin Trade Name Freq PRN Reason Stop Dose Admin Albuterol/Ipratropium 3 ml 08/04/18 02:56 08/05/18 15:25 Duoneb INH 3 ml Q4HR PRN Administration Wheezing Albuterol/Ipratropium 3 ml 08/05/18 18:00 08/08/18 16:19 Duoneb INH 3 ml RTQID MONICA Administration Aspirin 300 mg 08/08/18 09:00 08/08/18 09:34 CO 300 mg DAILY MONICA Administration Diltiazem HCl 2.5 mg 08/07/18 09:00 08/08/18 09:29 Cardizem Inj IVP 2.5 mg Q8H MONICA Administration Enoxaparin Sodium 40 mg 08/04/18 09:00 08/08/18 09:33 Lovenox SUBQ 40 mg DAILY MONICA Administration Famotidine 20 mg 08/07/18 09:00 08/08/18 09:33 Pepcid IVP 20 mg BID MONICA Administration Heparin Sodium (Beef Lung) 30 - 50 unit 08/04/18 22:53 08/06/18 05:51 IVP 50 unit PRN PRN Administration Port Protocol (<24 hours) Azithromycin 500 mg/ Sodium 250 mls @ 250 mls/hr 08/07/18 09:00 08/08/18 11:07 Chloride IV Infused DAILY MONICA Infusion Acetaminophen 100 mls @ 400 mls/hr 08/07/18 11:00 08/07/18 20:42 Ofirmev IV Infused Q6HR PRN Infusion Pain or Fever > 38C (100.4F) Vancomycin HCl 1 gm/ 500 mls @ 250 mls/hr 08/08/18 14:00 08/08/18 16:12 Vancomycin HCl 500 mg/ Sodium IV Infused Chloride Q12H MONICA Infusion Trimethoprim/Sulfamethoxazole 525 mls @ 350 mls/hr 08/08/18 12:00 08/08/18 14:13 25 ml/ Dextrose IV Infused Q6H MONICA Infusion Multivitamins 10 ml/ Chromium/ 2,011 mls @ 60 mls/hr 08/08/18 14:00 08/08/18 16:00 Copper/Manganese/Seleni/Zn 1 IV 60 mls/hr ml/ Amino Acids/Electrolytes/ Q24H MONICA Infusion Dextrose Protocol Fat Emulsion Intravenous 250 mls @ 21 mls/hr 08/08/18 14:00 08/08/18 16:00 Intralipid 20% IV 21 mls/hr Q24H MONICA Infusion Ketorolac Tromethamine 15 mg 08/07/18 08:00 08/08/18 12:47 Toradol Inj (15mg) IVP 08/12/18 07:59 15 mg Q6HR MONICA Administration Lorazepam 2 mg 08/08/18 14:22 08/08/18 15:37 Ativan Inj (Vial) IVP 2 mg Q2H PRN Administration Anxiety Methylprednisolone 80 mg 08/07/18 14:00 08/08/18 14:19 Solu-Medrol (40mg Vial) IVP 80 mg TID MNOICA Administration Morphine Sulfate 2 mg 08/07/18 00:24 08/08/18 16:38 Morphine IVP 2 mg Q2H PRN Administration PAIN Sodium Chloride 10 ml 08/03/18 22:21 08/08/18 14:20 Normal Saline Flush 0.9% IVP 10 ml PRN PRN Administration NEEDED PER PROVIDER ORDERS Sodium Chloride 10 ml 08/04/18 01:00 08/08/18 09:34 Normal Saline Flush 0.9% IVP 10 ml 0100,0900,1700 MONICA Administration Sodium Chloride 20 ml 08/08/18 03:40 08/08/18 03:30 Normal Saline Flush 0.9% IVP 20 ml PRN PRN Administration After Blood Draw - Lab Result Fish Bone Diagrams: 08/08/18 03:30 08/08/18 03:30 - Additional Planning My Orders: My Active Orders 08/08/18 03:40 Sodium Chloride Flush 0.9% [Normal Saline Flush 0.9%] 20 ml IVP PRN PRN 08/08/18 09:00 Aspirin Supp 300 mg CO DAILY 08/08/18 11:57 Nutrition Consult [CONS] Routine 08/08/18 12:00 Smx/Tmp 800Mg/160Mg 10Ml [Bactrim Ds 800Mg/160Mg 10Ml] 25 ml Dextrose 5% [D5w] 500 ml IV Q6H 08/08/18 14:00 Fat Emulsion 20% [Intralipid 20%] 250 ml IV Q24H Multivitamin [Infuvite] 10 ml Trace Elements V Conc [Multitrace-5 Conc Vial] 1 ml Ppn (Clinimix E 4.25/5) [Clinimix E 4.25%-5% Solution] 2,000 ml IV Q24H Vancomycin Inj [Vancomycin] 1 gm Vancomycin Inj 500 mg Sodium Chloride 0.9% [Normal Saline 0.9%] 500 ml IV Q12H 08/08/18 14:22 LORazepam INJ [Ativan Inj (Vial)] 2 mg IVP Q2H PRN 08/08/18 17:00 Piperacillin/Tazobactam [Zosyn] 3.375 gm Sodium Chloride 0.9% Minibag [Normal Saline 0.9% Minibag] 100 ml IV Q6H 08/09/18 05:00 ABG - ARTERIAL BLOOD GAS [BG] DAILYLAB 08/10/18 01:30 VANCOMYCIN TROUGH [CHEM] Timed 08/10/18 05:00 ABG - ARTERIAL BLOOD GAS [BG] DAILYLAB Subjective - Subjective Nursing Reports: Other (Sedated) Objective Vital Signs: Vital Signs - 24 hr 08/07/18 08/07/18 08/07/18 16:52 17:00 18:00 Temperature Heart Rate Heart Rate [ 85 76 Monitoring electrodes] Respiratory 17 17 Rate Blood Pressure 137/90 H Blood Pressure 135/80 H 130/75 [Right Brachial artery] O2 Saturation 96 96 08/07/18 08/07/18 08/07/18 18:29 19:00 19:37 Temperature Heart Rate 77 82 Heart Rate [ 80 Monitoring electrodes] Respiratory 20 18 Rate Blood Pressure Blood Pressure 131/81 H [Right Brachial artery] O2 Saturation 96 08/07/18 08/07/18 08/07/18 20:00 21:00 21:40 Temperature 36.4 C L Heart Rate 78 Heart Rate [ 80 81 Monitoring electrodes] Respiratory 20 18 Rate Blood Pressure Blood Pressure 137/76 H 137/82 H [Right Brachial artery] O2 Saturation 94 93 08/07/18 08/07/18 08/07/18 22:00 23:00 23:35 Temperature Heart Rate 73 Heart Rate [ 76 73 Monitoring electrodes] Respiratory 19 18 Rate Blood Pressure Blood Pressure 153/94 H 142/82 H [Right Brachial artery] O2 Saturation 95 95 08/08/18 08/08/18 08/08/18 00:00 00:52 00:59 Temperature 36.9 C Heart Rate Heart Rate [ 72 Monitoring electrodes] Respiratory 22 Rate Blood Pressure 154/73 H Blood Pressure 141/88 H [Right Brachial artery] O2 Saturation 94 93 08/08/18 08/08/18 08/08/18 01:00 01:05 01:10 Temperature Heart Rate Heart Rate [ 73 71 72 Monitoring electrodes] Respiratory 17 17 17 Rate Blood Pressure Blood Pressure 154/73 H 132/82 H 132/78 H [Right Brachial artery] O2 Saturation 93 93 94 08/08/18 08/08/18 08/08/18 01:15 01:30 01:35 Temperature Heart Rate 79 Heart Rate [ 73 75 Monitoring electrodes] Respiratory 18 20 Rate Blood Pressure Blood Pressure 136/90 H 150/86 H [Right Brachial artery] O2 Saturation 93 93 08/08/18 08/08/18 08/08/18 01:45 02:00 03:00 Temperature Heart Rate Heart Rate [ 72 73 88 Monitoring electrodes] Respiratory 18 19 22 Rate Blood Pressure Blood Pressure 136/86 H 156/90 H 144/100 H [Right Brachial artery] O2 Saturation 93 94 90 L 08/08/18 08/08/18 08/08/18 03:40 04:00 05:00 Temperature 36.0 C L Heart Rate 80 Heart Rate [ 81 76 Monitoring electrodes] Respiratory 20 19 Rate Blood Pressure Blood Pressure 143/94 H 144/89 H [Right Brachial artery] O2 Saturation 93 91 L 08/08/18 08/08/18 08/08/18 05:35 05:59 07:00 Temperature Heart Rate 80 Heart Rate [ 78 86 Monitoring electrodes] Respiratory 18 29 H Rate Blood Pressure Blood Pressure 137/88 H 151/95 H [Right Brachial artery] O2 Saturation 90 L 94 08/08/18 08/08/18 08/08/18 07:28 08:00 09:00 Temperature 36.4 C L Heart Rate 81 Heart Rate [ 89 83 Monitoring electrodes] Respiratory 20 18 18 Rate Blood Pressure Blood Pressure 133/84 H 147/93 H [Right Brachial artery] O2 Saturation 87 L 89 L 88 L 08/08/18 08/08/18 08/08/18 09:29 10:00 10:30 Temperature Heart Rate 84 Heart Rate [ 85 Monitoring electrodes] Respiratory 19 Rate Blood Pressure 147/93 H Blood Pressure 140/88 H [Right Brachial artery] O2 Saturation 88 L 08/08/18 08/08/18 08/08/18 11:00 12:00 12:55 Temperature Heart Rate 86 Heart Rate [ 83 90 Monitoring electrodes] Respiratory 19 21 Rate Blood Pressure Blood Pressure 155/90 H 164/92 H [Right Brachial artery] O2 Saturation 89 L 89 L 08/08/18 08/08/18 08/08/18 13:00 14:00 15:00 Temperature 35.3 C L Heart Rate 95 Heart Rate [ 93 99 94 Monitoring electrodes] Respiratory 20 21 20 Rate Blood Pressure Blood Pressure 157/97 H 146/101 H 156/82 H [Right Brachial artery] O2 Saturation 89 L 88 L 88 L 08/08/18 08/08/18 08/08/18 15:30 16:00 16:19 Temperature Heart Rate 98 97 Heart Rate [ 98 Monitoring electrodes] Respiratory 28 H 21 Rate Blood Pressure Blood Pressure 161/92 H [Right Brachial artery] O2 Saturation 94 Oxygen O2 Source BIPAP Oxygen Flow Rate 4 I&O (Last 24 Hrs): Intake and Output Totals x24h 08/06/18 08/07/18 08/08/18 23:59 23:59 23:59 Intake Total 1500 1450 2641.050 Output Total 1625 1421 740 Balance -266 19 6583.050 General: Other (Sedated) HEENT: Mucous membr. moist/pink Neck: Supple Neuro: Other (Sedated) Cardiovascular: Regular rate, No murmurs Respiratory: Breath sounds nml, Other (Distant breath sounds, consistent with COPD, no velcro rales of fibrosis heard) Extremities: No edema - Results Results: Laboratory Results WBC 6.3 x10^3/uL (4.8-10.8) 08/08/18 03:30 RBC 3.47 10^6/uL (4.70-6.10) L 08/08/18 03:30 Hgb 11.1 g/dL (14.0-18.0) L 08/08/18 03:30 Hct 31.2 % (42.0-52.0) L 08/08/18 03:30 MCV 89.8 fL (80.0-94.0) 08/08/18 03:30 MCH 31.9 pg (27.0-31.0) H 08/08/18 03:30 MCHC 35.5 g/dL (32.0-36.0) 08/08/18 03:30 RDW 16.6 % (12.0-15.0) H 08/08/18 03:30 Plt Count 155 10^3/uL (130-450) 08/08/18 03:30 MPV 6.2 fL (7.4-11.4) L 08/08/18 03:30 Reticulocyte % (Auto) 3.90 % (0.5-2.3) H 08/04/18 05:30 Neut # (Auto) 5.9 10^3/uL (1.5-6.6) 08/08/18 03:30 Lymph # (Auto) 0.1 10^3/uL (1.5-3.5) L 08/08/18 03:30 Curry # (Auto) 0.3 10^3/uL (0.0-1.0) 08/08/18 03:30 Eos # (Auto) 0.0 10^3/uL (0.0-0.7) 08/08/18 03:30 Baso # (Auto) 0.0 10^3/uL (0.0-0.1) 08/08/18 03:30 Absolute Nucleated RBC 0.02 x10^3/uL 08/08/18 03:30 Nucleated RBC % 0.3 /100WBC 08/08/18 03:30 Absolute Retic 0.133 10^6/uL (0.020-0.110) H 08/04/18 05:30 Bld Gas Analysis Time 1110 08/08/18 11:10 Sample Site LEFT RADIAL 08/08/18 11:10 ABG pH 7.47 (7.35-7.45) H 08/08/18 11:10 ABG pCO2 35 mmHg (34-45) 08/08/18 11:10 ABG pO2 55 mmHg (80-100) L* 08/08/18 11:10 ABG HCO3 24.8 mmol/L (22.0-26.0) 08/08/18 11:10 ABG Total CO2 25.8 MMOL/L (21.0-29.0) 08/08/18 11:10 ABG O2 Saturation 90 % (94-98) L 08/08/18 11:10 ABG Oximetry Spot Check 94 % 08/05/18 11:55 ABG Base Excess 1.5 mmol/L (-2.0-3.0) 08/08/18 11:10 Los Test POSITIVE 08/08/18 11:10 Respiration Rate 15 b/min 08/08/18 11:10 O2 Delivery Device BiPAP 08/08/18 11:10 O2 Liters/Min 40.00 LPM 08/06/18 12:09 Vent Mode SYNCHRONOUS/TIMES 08/08/18 05:54 FiO2 100.00 08/08/18 11:10 PEEP 6 cmH2O 08/08/18 05:54 Pressure Support Vent 6 cmH2O 08/08/18 11:10 EPAP 6 cmH2O 08/08/18 11:10 IPAP 12 cmH2O 08/08/18 11:10 Sodium 138 mmol/L (135-145) 08/08/18 03:30 Potassium 3.6 mmol/L (3.5-5.0) 08/08/18 03:30 Chloride 101 mmol/L (101-111) 08/08/18 03:30 Carbon Dioxide 27 mmol/L (21-32) 08/08/18 03:30 Anion Gap 10.0 (6-13) 08/08/18 03:30 BUN 25 mg/dL (6-20) H 08/08/18 03:30 Creatinine 0.6 mg/dL (0.6-1.2) 08/08/18 03:30 Estimated GFR (MDRD) 129 (>89) 08/08/18 03:30 Glucose 187 mg/dL (70-100) H 08/08/18 03:30 Lactic Acid 1.4 mmol/L (0.5-2.2) 08/03/18 20:03 Calcium 8.1 mg/dL (8.5-10.3) L 08/08/18 03:30 Iron 28 ug/dL (45-182) L 08/04/18 05:30 TIBC 178 ug/dL (250-450) L 08/04/18 05:30 % Saturation 16 % (20-50) L 08/04/18 05:30 Transferrin 127 mg/dL (180-329) L 08/04/18 05:30 Ferritin 542.0 ng/mL (23.9-336.2) H 08/04/18 05:30 Total Bilirubin 1.2 mg/dL (0.2-1.0) H 08/08/18 03:30 AST 47 IU/L (10-42) H 08/08/18 03:30 ALT 78 IU/L (10-60) H 08/08/18 03:30 Alkaline Phosphatase 189 IU/L (42-121) H 08/08/18 03:30 Lactate Dehydrogenase 210 IU/L (91-225) 08/04/18 05:30 Troponin I < 0.04 ng/mL (<0.49) 08/06/18 14:23 B-Natriuretic Peptide 280 pg/mL (5-100) H 08/08/18 03:30 Total Protein 5.6 g/dL (6.7-8.2) L 08/08/18 03:30 Albumin 2.9 g/dL (3.2-5.5) L 08/08/18 03:30 Globulin 2.7 g/dL (2.1-4.2) 08/08/18 03:30 Albumin/Globulin Ratio 1.1 (1.0-2.2) 08/08/18 03:30 Lipase 21 U/L (22-51) L 08/03/18 20:03 Vitamin B12 502 pg/mL (180-914) 08/04/18 05:30 Urine Color YELLOW 08/03/18 21:44 Urine Clarity CLEAR (CLEAR) 08/03/18 21:44 Urine pH 6.0 PH (5.0-7.5) 08/03/18 21:44 Ur Specific [place] 1.010 (1.002-1.030) 08/03/18 21:44 Urine Protein TRACE mg/dL (NEGATIVE) 08/03/18 21:44 Urine Glucose (UA) NEGATIVE mg/dL (NEGATIVE) 08/03/18 21:44 Urine Ketones >=80 mg/dL (NEGATIVE) H 08/03/18 21:44 Urine Occult Blood TRACE-INTA (NEGATIVE) 08/03/18 21:44 Urine Nitrite NEGATIVE (NEGATIVE) 08/03/18 21:44 Urine Bilirubin NEGATIVE (NEGATIVE) 08/03/18 21:44 Urine Urobilinogen 4 E.U./dL (NORMAL) H 08/03/18 21:44 Ur Leukocyte Esterase NEGATIVE (NEGATIVE) 08/03/18 21:44 Ur Microscopic Review NOT INDICATED 08/03/18 21:44 Urine Culture Comments NOT INDICATED 08/03/18 21:44 Nasal Screen MRSA (PCR) NEGATIVE (NEGATIVE) 08/07/18 01:28 Last Dose Date UNK 08/08/18 03:30 Last Dose Time UNK 08/08/18 03:30 Vancomycin Trough 12.0 ug/mL (10.0-20.0) 08/08/18 03:30 Sepsis Event Note (H) - Evaluation Possible source of Sepsis: positive: Pulmonary - Sepsis Criteria Sepsis Criteria: Suspected or Documented, Respiratory: Increasing oxygen requ irements
[2018-08-08] MEDS ORDERED: IRON SUCROSE 200 MG in SODIUM CHLORIDE 0.9% 100ML 100 ML IV ONE (18:36)
[2018-08-08] MEDS ORDERED: FERRIC GLUCONATE 125 MG in SODIUM CHLORIDE 0.9% 100ML 100 ML IV ONE (19:00)
[2018-08-08] MEDS ORDERED: FUROSEMIDE 20 MG/2 ML VIAL IVP SCH (20:45)
[2018-08-09] MEDS: MORPHINE 2 MG/ML SYRINGE IVP PRN ×6 (01:00→13:09)
[2018-08-09] MEDS: SODIUM CHLORIDE FLUSH 0.9% 10 ML SYRINGE IVP PRN ×7 (01:01→06:12)
[2018-08-09] MEDS: diltiaZEM INJ 5 MG/ML VIAL IVP SCH ×2 (01:09→08:55)
[2018-08-09] MEDS: LORazepam 2 MG/ML VIAL IVP PRN ×4 (01:29→12:40)
[2018-08-09] MEDS: ACETAMINOPHEN 1,000 MG/100 ML 100 ML IV PRN (01:36)
[2018-08-09] MEDS: VANCOMYCIN INJ 1 GM, VANCOMYCIN INJ 500 MG in SODIUM CHLORIDE 0.9% 500 ML IV SCH (01:40)
[2018-08-09] MEDS: PIPERACILLIN/TAZOBACTAM 3.375 GM in SODIUM CHLORIDE 0.9% MINIBAG 100 ML IV SCH (04:34)
[2018-08-09 05:54] LABS: ABG BASE EXCESS -0.2 mmol/L (-2.0-3.0); ABG HCO3 25.8 mmol/L (22.0-26.0); ABG PCO2 48 mmHg (34-45); ABG PH 7.35 (7.35-7.45); ABG TCO2 27.3 MMOL/L (21.0-29.0)
[2018-08-09 05:55] LABS: ALLEN TEST POSITIVE
[2018-08-09 05:56] LABS: ABG OXYGEN SATURATION 61 % (94-98); ABG PO2 33 mmHg (80-100)
[2018-08-09 06:03] LABS: BASOPHILS % (AUTO) 0.1 %; HGB - HEMOGLOBIN 10.5 g/dL (14.0-18.0); LYMPHOCYTES # (AUTO) 0.1 10^3/uL (1.5-3.5); MEAN CORPUSCULAR HEMOGLOBIN 31.8 pg (27.0-31.0); MEAN CORPUSCULAR VOLUME 90.9 fL (80.0-94.0); MEAN PLATELET VOLUME 6.4 fL (7.4-11.4); MONOCYTES # (AUTO) 0.4 10^3/uL (0.0-1.0); MONOCYTES % (AUTO) 4.8 %; NEUTROPHILS # (AUTO) 8.4 10^3/uL (1.5-6.6); NEUTROPHILS % (AUTO) 94.1 %; PLT - PLATELET COUNT 137 10^3/uL (130-450); RED BLOOD COUNT 3.29 10^6/uL (4.70-6.10); RED CELL DISTRIBUTION WIDTH 16.9 % (12.0-15.0); WHITE BLOOD COUNT 8.9 x10^3/uL (4.8-10.8)
[2018-08-09] MEDS: KETOROLAC 15 MG/ML VIAL IVP SCH ×2 (06:12→12:03)
[2018-08-09 06:14] LABS: ALBUMIN 2.6 g/dL (3.2-5.5); ALBUMIN/GLOBULIN RATIO 1.1 (1.0-2.2); BILIRUBIN,TOTAL 0.7 mg/dL (0.2-1.0); CALCIUM 7.5 mg/dL (8.5-10.3); CREATININE 0.7 mg/dL (0.6-1.2)
[2018-08-09] MEDS: methylPREDNISolone SUCCINATE 40 MG/ML VIAL IVP SCH (06:15)
[2018-08-09] MEDS: TMP IV SCH ×2 (06:15→11:37)
[2018-08-09] MEDS: DEXTROSE 5% IV SCH ×2 (06:15→11:37)
[2018-08-09] MEDS: SMX IV SCH ×2 (06:15→11:37)
[2018-08-09] MEDS ORDERED: ETOMIDATE 40 MG/20 ML VIAL IVP ONE (06:31)
[2018-08-09] MEDS ORDERED: SUCCINYLCHOLINE 200 MG/10 ML VIAL IVP ONE (06:31)
[2018-08-09] MEDS ORDERED: PROPOFOL 1000 MG/100 ML 100 ML IV ONE ×2 (06:52→13:09)
--- NOTE | 2018-08-09 07:19 | ED Physician Documentation ---
ED Addendum - Addendum Addendum: 08/09/18 07:15 Hospitalist requested assistance with intubation of patient who has known metastatic esophageal cancer with poor prognosis. Family and patient want all interventions performed. Spoke with son, who agreed with procedure and provided verbal consent. Hospitalist provided further history and labs and feel that etomidate and succinylcholine are appropriate. Ordered etomidate 20 mg and succinylcholine 70 mg for sedation and paralytic, respectively. Patient is on BiPAP and continued on such until the time of intubation. Requested high flow oxygen, although none present. Patient then continued on nasal cannula and [id number].Patient did desaturate, but rebounded well once intubated. Intubated with 7.5 cm tube and use of glide scope. Intubated on first attempt with visualization of the vocal cords. Patient did have extremely dry mouth, as well as presence of significant thick material and blood in the airway. Color change, as well as auscultation confirmed placement. Fogging of tube also present. Patient placed on ventilator with no further issues. Hospitalist to provide sedation. Chest xray ordered for tube placement.
[2018-08-09] MEDS: PROPOFOL 1000 MG/100 ML 100 ML IV SCH ×2 (07:24→13:06)
[2018-08-09] MEDS: POTASSIUM CHLOR 10 MEQ/100 ML 10 MEQ/100 ML BAG IV SCH ×4 (07:34→10:35)
--- NOTE | 2018-08-09 07:47 | XRAY Report ---
Reason: INTUBATION Procedure Date: 08/09/2018 Accession Number: [id number] / [id number] Procedure: XR - Chest for Line Placement CPT Code: FULL RESULT: EXAM: CHEST RADIOGRAPHY EXAM DATE: 08/09/2018 07:26 AM. CLINICAL HISTORY: Shortness of breath. COMPARISON: CHEST 1 VIEW 08/08/2018 8:36 AM. TECHNIQUE: 1 view. FINDINGS: Lungs/Pleura: Patchy and interstitial bilateral airspace opacities, right side greater than left side is unchanged. There is no effusion or pneumothorax. No vascular congestion. Mediastinum: Within exam limitations, the cardiomediastinal contour is normal. Other: Endotracheal tube terminates 5.5 cm above the sergio. Right sided [id number] is seen terminating in the cavoatrial junction region. IMPRESSION: 1. Endotracheal tube terminates 5.5 cm above the sergio. 2. Stable patchy and interstitial bilateral airspace opacities. RADIA
[2018-08-09 08:38] LABS: ABG BASE EXCESS -2.8 mmol/L (-2.0-3.0); ABG HCO3 26.5 mmol/L (22.0-26.0); ABG OXYGEN SATURATION 91 % (94-98); ABG PO2 76 mmHg (80-100); ABG TCO2 28.6 MMOL/L (21.0-29.0)
[2018-08-09 08:39] LABS: ALLEN TEST POSITIVE
[2018-08-09 08:42] LABS: ABG PCO2 70 mmHg (34-45)
[2018-08-09] MEDS: ENOXAPARIN 40 MG/0.4 ML SYRINGE SUBQ SCH (08:55)
[2018-08-09] MEDS ORDERED: CHLORHEXIDINE GLUCONATE 15 ML UDC PO SCH (09:00)
[2018-08-09] MEDS: AZITHROMYCIN INJ 500 MG in SODIUM CHLORIDE 0.9% 250 ML IV SCH (09:12)
[2018-08-09] MEDS: SODIUM CHLORIDE FLUSH 0.9% 10 ML SYRINGE IVP SCH (09:23)
[2018-08-09] MEDS: ASPIRIN 300 MG SUPP PR SCH (10:38)
[2018-08-09 11:07] LABS: ABG PO2 114 mmHg (80-100)
[2018-08-09 11:08] LABS: ABG BASE EXCESS -3.4 mmol/L (-2.0-3.0); ABG HCO3 25.6 mmol/L (22.0-26.0); ABG OXYGEN SATURATION 97 % (94-98); ABG TCO2 27.7 MMOL/L (21.0-29.0); ALLEN TEST POSITIVE
[2018-08-09 11:13] LABS: ABG PCO2 68 mmHg (34-45)
--- NOTE | 2018-08-09 11:48 | MISCELLANEOUS PROVIDER NOTE ---
Miscellaneous Provider Note - - Note: Subjective: Patient failed BiPAP trial on 08/08 and essentially intubated, sedated and mechanically ventilated. Patient seen at bedside currently sedated mechanically ventilated and with no acute overnight events. Objective: Afebrile, heart rate 101, blood pressure 152/92, RR 14, 98% O2 saturation on 100% fio2 mechanical ventilation General: Patient is intubated, sedated and mechanically ventilated HEENT: Pupils are reactive. NCAT. No buccal lesions Neck: No JVD/bruits/trachea midline, no thyromegaly CV/lungs: RRR. S1-S2 within normal limits. No murmurs, gallops, clicks, or rubs. Decreased breath sounds bilaterally right more than left. Port-A-Cath to the right side. Bilateral expiratory rhonchi with no wheezing no increased work of breath no retractions. Abdomen: Soft nontender nondistended positive bowel sounds all quadrants. No HSM. Extremities/skin: No edema clubbing or cyanosis. Neuro: Patient is sedated. DTRs are bilateral symmetric Labs: Reviewed Imaging studies: Reviewed Assessment/Plan: (1) Respiratory failure with hypoxia Qualifiers: Chronicity: acute on chronic Qualified Code(s): J96.21 - Acute and chronic respiratory failure with hypoxia Assessment/Plan: Patient is currently intubated and chest x-ray shows a right Port-A-Cath that is stable with bilateral patchy infiltrates with COPD changes there is airspace opacities right more than left concerning for possible ventilator associated pneumonia versus aspiration. Patient has multi-antimicrobial coverage with azithromycin, vancomycin, Bactrim for PCP coverage and methylprednisone for anti-inflammatory properties. Patient's respiratory culture yielded a Klebsiella oxytoca with resistance to piperacillin, sensitivities to cefepime. Will switch over to Merrem. Continue with vancomycin. Continue with mechanical ventilation. Current blood gases show respiratory acidosis with hypoxemia and settings with a PEEP of 10, SIMV of 22, PS of 10, tidal volume of 400 with FiO2 100%. RR will be increased to 25 as per respiratory recommendations. Continue with aggressive medical management. I reached out to primary professional driver Dr. Cosme and essentially told him that patient was intubated and required multi-antimicrobial coverage with worsening ABGs, I was told that they would call me back as he does not cover critical care today and would need his colleague to cover pulmonology and accept transfer. (2) Pneumonia Qualifiers: Pneumonia type: due to unspecified organism Laterality: bilateral Lung location: unspecified part of lung Qualified Code(s): J18.9 - Pneumonia, unspecified organism Assessment/Plan: I called his Rubbing Bed Operator, Gordon Cosme MD at [facility], in [facility] . I reviewed the entire case, including the ABGs and the CXR results, As well as microbiology which shows Klebsiella oxytoca and 1+ yeast. Will hold off on Diflucan. Will DC Zosyn as this has resistance to the current Klebsiella species and placed on Merrem. Continue with vancomycin along with azithromycin and Bactrim for PCP pneumonia coverage. Methylprednisone to continue. Continue with serial ABGs and serial chest x-rays. (3) Metabolic encephalopathy Assessment/Plan: This was likely in the setting of patient's acid-base disturbance and hypoxemia. Currently sedated, intubated and mechanically ventilated will reassess if he is able to be extubated. In addition, patient has stage IV esophageal adenocarcinoma. Last PET scan was on 07/21/2018 showing worsening of upper mid back involvement. Unclear if patient has had recent head CT or MRI of brain to e xamine metastatic spread. (4) COPD with exacerbation Assessment/Plan: In the discussion with Dr. Horvath and with his Rubbing Bed Operator, Dr Gordon Arriaza, he told her that the patient had PFTs this year showing minimal improvement to inhalers or steroids, Currently on IV Solu-Medrol. Continue to treat with DuoNeb's, medical management. ABGs to monitor while being on a mechanical ventilation. (5) Anemia Qualifiers: Anemia type: iron deficiency Assessment/Plan: Iv Iron infusions and/or blood transfusions may be needed, given his hypoxia. Follow CBC daily. 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 According to prior information the family has told Dr. Horvath he was given a 1 - 1.5 year prognosis. Patient has had 6 cycles of F ol FO X with good response, status post palliative XRT to L2/left rib/T4-T6 and recent PET on 07/21/2018 showed worsening upper mid back pain with involvement. Referral to palliative rad [place] was given. The chemo and radiation did help shrink the esophageal mass and he is able to eat a normal diet. The patient stated multiple times recently to the family that he wished aggressive medical management, including CPR, intubation and transfers to higher level of care if needed. (7) Hypokalemia -IV fluids with correction and repletion of electrolyte disturbances. (8) Elevated LFTs Secondary to hepatic congestion from fluid overload, immunocompromised may need hep screening CODE STATUS: Full code Total critical care: 30 minutes
[2018-08-09] MEDS ORDERED: MEROPENEM 500 MG in SODIUM CHLORIDE 0.9% MINIBAG 100 ML IV SCH (12:00)
--- NOTE | 2018-08-09 12:54 | Discharge Plan ---
Discharge Plan Disposition: 02 Transfer Acute Care Hosp Condition: Critical Diet: Low Sodium (Patient is on tube feedings) Activity Restrictions: Activity as Tolerated Additional Instructions or Follow Up instructions: You were admitted for acute respiratory failure with hypoxemia for which needed intubation. You are growing Klebsiella oxytoca along with yeast in her sputum which you are being treated currently for pneumonia as it relates to your lack of oxygen at at the level of the lungs. In addition we would like to rule out the possibility of metastatic spread to your lungs and you will require a bronchoscopy along with further procedures done at [facility] that would not be necessarily done here at [facility]. In addition we are providing further medical support to either conditions that you are being gayle ated here in the hospital for which would include continuing to monitor for any changes in the metastatic process from your esophagus to your bones along with labs to be followed up at [facility]. Dr. Rivera will be your primary program or project administrator who has accepted your care and will be in direct communication with your primary program or project administrator Dr. Cosme who will also be in contact with Dr. Roberts who is your primary oncologist. 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 No Smoking: If you smoke, Please STOP! Call for help. Follow-up with: EVELYN TRINIDAD MD [Primary Care Provider] - (To follow-up in 3 to 4 weeks)
[2018-08-09] MEDS ORDERED: MIDAZOLAM DRIP 50 MG/100 ML BAG IV SCH (13:00)
[2018-08-09] MEDS ORDERED: MEROPENEM 1 GM in SODIUM CHLORIDE 0.9% MINIBAG 100 ML IV SCH (13:00)
--- NOTE | 2018-08-09 13:07 | DISCHARGE SUMMARY ---
"Discharge Summary Admit Date: 08/03/18 Discharge Date: 08/09/18 Discharging Provider: Dr. Finch Primary Care Provider: Nida Burkett Code Status: Attempt Resuscitation Condition at Discharge: Critical Discharge Disposition: 02 Transfer Acute Care Hosp Discharge [facility] Name: [facility] - DIAGNOSES Admission Diagnoses: 1. Pneumonia 2. Acute hypoxemic respiratory failure secondary to pneumonia next 3. Acute COPD exacerbation 4. Acute hypoxemic encephalopathy 5. 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 Hypertension 7. GERD Discharge Diagnoses with Status of Each Condition: (1) Respiratory failure with hypoxia, Status post mechanical ventilation: Stable (2) Acute respiratory acidosis with hypercarbia: Stable (3)Pneumonia; Stable (4) Metabolic encephalopathy; Stable (5) COPD with exacerbation, With associated blebs: Stable (6) Anemia; Stable (7) Esophageal cancer, Status post XRT, status post 6 cycles of FOLFOX, 2 doses of Keytruda, Status post XRT to L2/left rib/T4-T6; Progressive stable (8) Hypokalemia; Stable (9) Elevated LFTs; Stable - HPI History of Present Illness: This is a unfortunate 83-year-old male who was brought to the ED by his daughter and son-in-law for confusion, chills, Reiger's and increasing dyspnea. She she reports that he sounded confused on the phone conversation the previous night. He has a history of esophageal cancer stage IV with metastatic spread to the spine status post FOLFOX 6 cycles as well as XRT with a recent PET on 07/21/2018 showing worsening upper mid mid back involvement. He had a radiology appointment for brain mapping prior to radiotherapy on the day of admission on 08/03/2018. He slept all the way to the appointment and all the way back. At around 5 PM he was visited by sibling who lives in the same apartment complex. He seemed disoriented then. Patient cannot remember if he took his medications at morning. Patient has had a productive cough and was found to have a pulse ox in the 70s and his O2 saturation on the day of admission was ranging between 89 to 91% on 4 to 5 L nasal cannula. Patient explains his pain between his shoulder blades and as result of metastatic spread to his T-spine. Patient had 3 months of chemotherapy and then was started on Keytruda. He received 2 doses of Keytruda and had a severe reaction to it and therefore was discontinued and was placed on dexamethasone. Patient had previously detectable esophageal lymph nodes which were no longer seen. Work-up in the ED included a chest x-ray which showed pneumonia and therefore patient was admitted for further evaluation management treatment. - CONSULTS | PROCEDURES Consultations: Primary international student counselor Dr. Cosme Procedures: Sedated intubated and mechanically ventilated. - HOSPITAL COURSE Hospital Course: Patient was admitted for acute hypoxemic respiratory failure with associated pneumonia. Patient's chest x-ray showed a right stable Port-A-Cath with bilateral patchily infiltrates with COPD changes and some blebs. Patient was placed on empiric IV antibiotics. On 08/08 patient failed a trial of BiPAP and was subsequently intubated. Patient was placed on azithromycin vancomycin and Zosyn as well as Bactrim for PCP Coverage. Patient was also placed on methylprednisone after initially given dexamethasone in the ED. Due to patient's worsening metastatic spread family discussion on palliative versus aggressive care were conveyed and patient family had decided on aggressive care. Primary international student counselor Dr. Cosme was consulted and Recommendations were made. Patient did not tolerate BiPAP therefore was intubated. Patient was growing Klebsiella oxytoca along with 1+ yeast in sputum. Patient's Zosyn was discontinued and switched over to Merrem for coverage. Patient had stable bilateral patchy infiltrates with COPD changes from chest x-ray on 08/09 compared to previous chest x-rays. ABGs showed a progression to a respiratory acidosis which had increased also his PCO2 while on a PEEP of 10 SIMV 22 tidal volume 400 100% FiO2. Respiratory therapist had recommended increasing his RR to improve his CO2 output. Patient essentially is a full code and therefore aggressive ma lee has been agreed upon family to transfer to his pulmonology services with ICU at [facility]. Alongside his primary oncologist will be communicating with primary international student counselor for further care and chemotherapy will be deferred for now due to his active pneumonia.Patient required propofol sedation drip however blood pressures have been on the low side. Blood cultures x2 were negative growth to date. Patient was hemodynamic Ronn stable to be transferred. Patient will likely require bronchoscopy to rule out PCP pneumonia or atypical pneumonia along with metastatic or malignant cells that may be present in BAL/brushings. - ALLERGIES Allergies/Adverse Reactions: Allergies Allergy/AdvReac Type Severity Reaction Status Date / Time pembrolizumab [From Pegastechuda] Allergy Anaphylaxis Verified 08/03/18 19:46 - MEDICATIONS Home Medications: Ambulatory Orders Medication Instructions Recorded Confirmed Albuterol 2.5 mg INH RTQ4H PRN neb 08/09/18 Aspirin Supp 300 mg [place] DAILY supp 08/09/18 Enoxaparin [Lovenox] 40 mg SUBQ DAILY syringe 08/09/18 Ipratropium/Albuterol [Duoneb] 3 ml INH Q4HR PRN neb 08/09/18 Ipratropium/Albuterol [Duoneb] 3 ml INH RTQID neb 08/09/18 LORazepam INJ [Ativan Inj (Vial)] 2 mg IVP Q2H PRN vial 08/09/18 Meropenem [Merrem] 500 mg IV Q8H vial 08/09/18 Pantoprazole [Protonix inj] 40 mg IVP QDAC vial 08/09/18 - PHYSICAL EXAM AT DISCHARGE General Appearance: positive: No acute distress, Other (Intubated sedated and mechanically ventilated) Eyes Bilateral: positive: Normal inspection, Conjunctivae nml ENT: positive: ENT inspection nml, Pharynx nml, No signs of dehydration Neck: positive: Nml inspection, Thyroid nml, No JVD, Trachea midline Respiratory: positive: No respiratory distress, Rhonchi, Other (Mild scattered rales right more than left) Cardiovascular: positive: Regular rate & rhythm, No murmur, No gallop Peripheral Pulses: positive: 2+ Abdomen: positive: Non-tender Extremities: positive: Pedal edema Neurologic/Psychiatric: positive: Other (Patient is sedated and ventilated) - LABS Result Diagrams: 08/09/18 05:05 08/09/18 05:05 - DIAGNOSTIC IMAGING Diagnostic Imaging Results: Final report reviewed - SEPSIS Current Stage of Sepsis: Ruled out Sepsis Criteria: Suspected or Documented, Respiratory: Increasing oxygen requirements - QUALITY (Female Hip Fx Only) Was patient sent home on osteoporosis medication?: No - FOLLOW UP Follow Up: PCP to follow-up in 2 to 3 weeks. Primary international student counselor to make an appointment once discharged from [facility] - TIME SPENT Time Spent in Discharge (Minutes): 35"
[2018-08-09 14:01] VITALS: BP 107/64
[2018-08-10] MEDS ORDERED: PANTOPRAZOLE 40 MG VIAL IVP SCH (07:00)
== END 2018-08-09 13:30 | disposition short-term general hospital (02) | DRG 208 ==
LOC: ED 19:36 → MS3 22:21 → ICU 08-07 00:17
PROVIDERS: ADMIT Internal Medicine; ATTEND Internal Medicine
PROC: 5A1935Z Respiratory Ventilation, Less than 24 Consecutive Hours (ICD-10-PCS; principal; 2018-08-09)
PROC: 0BH17EZ Insertion of Endotracheal Airway into Trachea, Via Natural or Artificial Opening (ICD-10-PCS; 2018-08-09)
DX: J44.9 Chronic obstructive pulmonary disease, unspecified (principal); J96.21 Acute and chronic respiratory failure with hypoxia; R09.02 Hypoxemia; Z85.01 Personal history of malignant neoplasm of esophagus; Z79.82 Long term (current) use of aspirin; J18.9 Pneumonia, unspecified organism; G93.41 Metabolic encephalopathy; J44.0 Chronic obstructive pulmonary disease with (acute) lower respiratory infection; J44.1 Chronic obstructive pulmonary disease with (acute) exacerbation; C15.9 Malignant neoplasm of esophagus, unspecified; C79.51 Secondary malignant neoplasm of bone; E87.3 Alkalosis; K21.9 Gastro-esophageal reflux disease without esophagitis; J96.22 Acute and chronic respiratory failure with hypercapnia; D64.9 Anemia, unspecified; Z92.21 Personal history of antineoplastic chemotherapy; Z92.3 Personal history of irradiation; E87.6 Hypokalemia; R79.89 Other specified abnormal findings of blood chemistry; I10 Essential (primary) hypertension; Z87.891 Personal history of nicotine dependence
CPT/HCPCS: 36415; 36600; 70450; 71045; 71260; 76705; 80048; 80053; 80202; 81003; 82607; 82728; 82803; 83540; 83605; 83615; 83690; 83880; 84466; 84484; 85025; 85044; 87040; 87070; 87150; 87181; 87205; 93005; 93306; 94640; 94660; 94770; 96374; 99284; A9270; J0131; J0330; J1650; J2060; J2270; J2916; J3370; J3490; Q9967; 81001; 87086; 99285